=== PATIENT | female | born 1965 | race Caucasian/White ===

== ENCOUNTER → 2023-08-14 16:29 | Outpatient (CLI) | payer MEDICARE, SELFPAY ==
[2023-08-14 16:11] LABS: Alanine Aminotransferase 28 U/L (12-78); Albumin Level 3.5 g/dl (3.5-5.0); Albumin/Globulin Ratio 1.3 (1.1-1.8); Alkaline Phosphatase 70 U/L (38-126); Anion Gap 8.5 mEq/L (5-15); Aspartate Amino Transferase 26 U/L (14-36); Bilirubin,Total 0.3 mg/dl (0.2-1.3); Blood Urea Nitrogen 10 mg/dl (7-17); Calcium 8.8 mg/dl (8.4-10.2); Carbon Dioxide 33 mmol/L (22.0-30.0); Chloride 97 mmol/L (98-107); Chol/HDL Ratio 7.9 (1-3.5); Cholesterol 173 mg/dl (140-200); Estimated Glomerular Filt Rate 103 ml/min (>60); GFR (African American) 124 ML/MIN (>60); Globulin 2.7 g/dL (1.3-3.2); Glucose 139 mg/dl (74-100); HDL Cholesterol 22 mg/dl (40-60); Potassium 3.5 mmoL/L (3.5-5.1); Sodium 135 mmol/L (136-145); Total Protein,Serum 6.2 g/dl (6.3-8.2); Triglycerides 265 mg/dl (30-150); VLDL Cholesterol 53 mg/dL (0-40)
[2023-08-14 16:16] LABS: Basophils # 0.1 K/mm3 (0-0.2); Basophils % 1.1 % (0.1-2.0); Eosinophils # 0.3 K/mm3 (0.0-0.4); Eosinophils % 2.8 % (0.1-12.0); Hematocrit 44.5 % (37.0-47.0); Hemoglobin 15.5 g/dL (12.2-16.2); Mean Corpuscular HGB Conc 34.9 g/dL (31.8-35.4); Mean Corpuscular Hemoglobin 34.4 pg (27.0-31.2); Mean Corpuscular Volume 98.6 fl (81-99); Mean Platelet Volume 10.3 fl (7.4-10.4); Monocytes # 0.5 K/mm3 (0.1-1.0); Monocytes % 4.6 % (1.7-9.3); Neutrophils # 5.2 K/mm3 (1.8-7.8); Neutrophils % 46.6 % (37.0-80.0); Platelet Count 225 K/mm3 (142-424); Red Blood Count 4.52 M/mm3 (4.20-5.40); Red Cell Distribution Width 12.7 % (11.5-17.5); White Blood Count 11.1 K/mm3 (4.8-10.8)
[2023-08-14 16:22] LABS: Direct LDL Cholesterol 113.14 mg/dL (100-129)
[2023-08-14 16:27] LABS: Free T4 (Free Thyroxine) 1.36 ng/dl (0.78-2.19)
[2023-08-14 16:28] LABS: T4 (Thyroxine) 9.3 ug/dl (5.53-11.0); Triiodothryronine (T3) Uptake 37 % (23.5-40.5)
[2023-08-14 16:42] LABS: Thyroid Stimulating Hormone 1.37 uIU/mL (0.465-4.68)
== END ==
LOC: LAB.DROPOF 16:30
PROVIDERS: PCP Nurse Practitioner Family; Visit Provider Nurse Practitioner Family
DX: I10 Essential (primary) hypertension (principal); F41.9 Anxiety disorder, unspecified; Z72.0 Tobacco use; Z79.899 Other long term (current) drug therapy
CPT/HCPCS: 80053; 80061; 84436; 84439; 84443; 84479; 85025

== ENCOUNTER → 2023-08-23 13:19 | Outpatient (CLI) | payer MEDICARE, SELFPAY ==
--- NOTE | 2023-08-23 13:24 | MM_ITS ---
PROCEDURE INFORMATION: Exam: MG Bilateral Screening 3D Mammography Exam date and time: 08/23/2023 1:35 PM Age: 58 years old Clinical indication: Screening mammogram TECHNIQUE: Imaging protocol: Bilateral Screening tomosynthesis and 2D mammography including computer-aided detection (CAD) when performed. COMPARISON: No relevant prior studies available. FINDINGS: MAMMOGRAPHY: Breast composition: There are scattered areas of fibroglandular density. Mass: None. Architectural distortion: No new or suspicious architectural distortion. Calcifications: No new or suspicious calcifications are present Asymmetric density: No new or suspicious asymmetric density is present Skin thickening: None. Axillary adenopathy: None. IMPRESSION: No mammographic evidence of malignancy. Recommend annual screening mammography unless otherwise clinically indicated. ASSESSMENT: BI-RADS category 1: Negative
== END ==
PROVIDERS: PCP Nurse Practitioner Family; Visit Provider Pediatrics
DX: Z12.31 Encounter for screening mammogram for malignant neoplasm of breast (principal)
CPT/HCPCS: 77063; 77067

== ENCOUNTER 2024-08-08 09:09 | Inpatient (IN) | payer MEDICAID, SELFPAY ==
[2024-08-08] VITALS (7 sets, daily range): BP systolic 107–133; BP diastolic 70–77; PULSE 80–110; RESP 18–22; TEMP 37.1–38.2; O2SAT 92–96; BMI 33.6; BMI 34.3
[2024-08-08 09:22] LABS: Microscopic, Urine URINE MICROSCOPIC (MICROSCOPIC)
[2024-08-08 09:29] LABS: Appearance,Urine CLEAR (Clear); Blood, Urine Negative (Negative); Color,Urine YELLOW (Yellow); Glucose,Urine (UA) 3+ (Negative); Ketones,Urine 1+ (Negative); Leukocyte Esterase,Urine TRACE (Negative); Nitrate,Urine Negative (Negative); Protein,Urine TRACE (Negative); Specific Gravity, Urine 1.025 (1.005-1.030)
--- NOTE | 2024-08-08 09:30 | ECG_ITS ---
APPROVED REPORT Exam: Resting ECG HR:103 bpm ECG Measurements Heart Rate [address] 171 P 72 QRSd 110 QRS 23 QT 347 T 75 QTc 407 Conclusion SINUS TACHYCARDIA INCOMPLETE RIGHT BUNDLE BRANCH BLOCK [90+ ms QRS DURATION, TERMINAL R IN V1/V2, 40+ ms S IN I/aVL/V4/V5/V6] NONSPECIFIC T-WAVE ABNORMALITY ABNORMAL RHYTHM ECG Electronically signed by : MURIEL NORWOOD, 08/08/2024 16:28:02
[2024-08-08 09:32] LABS: Bilirubin,Urine Negative (Negative)
--- NOTE | 2024-08-08 09:34 | PC.NURSE ---
Blood sugar is 308.
--- NOTE | 2024-08-08 09:38 | PC.NURSE ---
Dr. Brower at bedside
--- NOTE | 2024-08-08 09:44 | CT_ITS ---
PROCEDURE INFORMATION: Exam: CT Abdomen And Pelvis Without Contrast Exam date and time: 08/08/2024 10:03 AM Age: 59 years old Clinical indication: Nausea and vomiting and other: R gluteal abscess; Additional info: Sepsis, R gluteal abscess/cellulitis, nausea/vom TECHNIQUE: Imaging protocol: Computed tomography of the abdomen and pelvis without contrast. Radiation optimization: All CT scans at this facility use at least one of these dose optimization techniques: automated exposure control; mA and/or kV adjustment per patient size (includes targeted exams where dose is matched to clinical indication); or iterative reconstruction. COMPARISON: No relevant prior studies available. FINDINGS: Lungs: See Heart finding. Heart: Normal heart size. Mild left basilar subsegmental atelectasis. Liver: Moderate hepatic steatosis. No evidence of cirrhosis. No focal lesion. Bile ducts are unremarkable. Gallbladder and biliary ducts: Gallbladder is unremarkable. Pancreas: Normal. No ductal dilation. Spleen: Calcified granulomas in the spleen. Adrenal glands: Normal. No mass. Kidneys and ureters: No renal or ureteral calculi or obstruction bilaterally. Stomach and bowel: No bowel obstruction or acute inflammation. Severe descending and sigmoid colonic diverticulosis. Appendix: Appendix is normal. Intraperitoneal space: Unremarkable. No free air. No significant fluid collection. Vasculature: Unremarkable. No abdominal aortic aneurysm. Lymph nodes: Unremarkable. No enlarged lymph nodes. Urinary bladder: Unremarkable as visualized. Reproductive: Unremarkable as visualized. Bones/joints: Unremarkable. No acute fracture. Soft tissues: There is umet-st-wloapyzm subcutaneous stranding in the left paramedian and posterior aspect of the inferior gluteal tissues. No drainable fluid collection or gas. A tiny hypoattenuating nodular focus measuring 8 x 9 x 7 mm(AP x CC x TV) in the paramedian soft tissues of the left gluteal fold as seen on image 138 series 3 is too small to characterize. Differential includes benign entity such as epidermoid cyst versus a tiny phlegmon. Of note, no significant surrounding inflammatory change. IMPRESSION: 1. No bowel obstruction or acute inflammation. 2. Severe descending and sigmoid colonic diverticulosis. There is lutd-pn-lzzkegci subcutaneous stranding in the left paramedian and posterior aspect of the inferior gluteal tissues, without associated drainable fluid collection or gas. 3. A tiny hypoattenuating nodular focus measuring 8 x 9 x 7 mm(AP x CC x TV) in the paramedian soft tissues of the left gluteal fold as seen on image 138 series 3 is too small to characterize. Differential includes benign entity such as epidermoid or sebaceous cyst versus a tiny phlegmon. Of note, no significant surrounding inflammatory change.
--- NOTE | 2024-08-08 09:44 | CT_ITS ---
PROCEDURE INFORMATION: Exam: CT Head Without Contrast Exam date and time: 08/08/2024 10:00 AM Age: 59 years old Clinical indication: Pain; Headache; Additional info: New headache TECHNIQUE: Imaging protocol: Computed tomography of the head without contrast. Radiation optimization: All CT scans at this facility use at least one of these dose optimization techniques: automated exposure control; mA and/or kV adjustment per patient size (includes targeted exams where dose is matched to clinical indication); or iterative reconstruction. COMPARISON: No relevant prior studies available. FINDINGS: Brain: There is no mass effect, midline shift, acute hemorrhage, extra-axial fluid collection or acute lobar infarct. Cerebral ventricles: No ventriculomegaly. Paranasal sinuses: Mucosal thickening is noted within frontal recesses and ethmoid air cells. Mastoid air cells: Visualized mastoid air cells are well aerated. Bones: Unremarkable. No acute fracture. Soft tissues: Unremarkable. IMPRESSION: No acute intracranial process.
[2024-08-08 09:45] LABS: Lactate Venous 2.2 mmol/L (0.4-2.0); VBG Base Excess 3.8 mmol/L (-2.4-2.3); VBG HCO3 28.8 mmol/L (23-30); VBG Oxygen Saturation 59.5 % (50-70); VBG PCO2 48.6 mmol/L (35-51); VBG PH 7.39 mmol/L (7.31-7.41); VBG PO2 25.1 mmol/L (28-40); VBG Total CO2 30.3 mmol/L (23-27)
--- NOTE | 2024-08-08 09:48 | PC.NURSE ---
Called [facility] per Dr. Brower requesting medical records from yesterday.
[2024-08-08 09:49] LABS: Bacteria,Urine Trace /lpf
--- NOTE | 2024-08-08 09:50 | ED_ITS ---
Discharge Plan Disposition Patient Disposition: Admitted Clinical Impressions Clinical Impression: Cellulitis of buttock, left, Hyperglycemia, Sepsis, Hypokalemia Discharge ED Provider: Nila Brower General Adult HPI General Chief complaint: Hyper/Hypoglycemia Stated complaint: glucose 287, SINGH Time Seen by Provider: 08/08/24 09:34 Mode of Arrival: Ambulatory Source of Information: Patient and Relative Limitations: No Limitations Description of Symptoms (Recalled from ER Triage Doc. by RN): pt was seen last night at [facility] er for cellulitis on left buttock, sugar was running high over the last 3 days, pt has loss of appetite, nausea, headache. pt takes no meds for diabetes and states 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 She states that she first noticed that she had a cyst on her butt that opened up and was draining, however now it feels hard again and she has increased pain in her left buttock, redness, warmth, and swelling. She states that she went to [facility] last night where they noted her blood sugar was high, gave her some insulin, and then sent her home because she told them that she is allergic to IV contrast and would not do a contrasted scan of her butt. She states that once she said that she is allergic to contrast they did not do anything for her. She states they told her she has a borderline sinus infection in addition to the cellulitis they diagnosed her with. They did send her home with antibiotics, which she has not yet started as she was supposed to pick them up today. She notes that she has had higher blood sugar than normal the last several days up in the 200-300 range. She knows she is a borderline diabetic but has never been prescribed medications for diabetes in the past. She does note that she is having a headache and sinus pressure, but she denies any visual changes, numbness, tingling, weakness, or other concerns. She has not been taking her home medications secondary to her nausea and inability to tolerate oral intake. I requested records from [facility] and independently reviewed these. It looks like her urinalysis at that time was concerning for urinary tract infection, she was found to have the cellulitis of her left buttock but they did not appreciate abscess at that time, and no imaging was performed. She was given IV Rocephin patient was found to have a normal lactic acid and procalcitonin there. She did have a leukocytosis of 20 and was hemoconcentrated as well with a hemoglobin of 17.8. Chemistry showed very mild hyponatremia, hypokalemia, and hypochloremia with a glucose of 332 but otherwise reassuring. She was given 10 units of insulin. Related Data Home Medications ?Medication ?Instructions ?Recorded ?Confirmed fluticasone propionate 50 2 spray intranasal DAILY 08/13/23 08/08/24 mcg/actuation nasal spray,suspension cephalexin 500 mg capsule 500 mg PO BID 08/08/24 08/08/24 meloxicam 15 mg tablet 15 mg PO DAILY 08/08/24 08/08/24 rosuvastatin 10 mg tablet 30 mg PO DAILY 08/08/24 08/08/24 Allergies Allergy/AdvReac Type Severity Reaction Status Date / Time Penicillins Allergy Severe Swelling Verified 04/06/24 15:20 of Lip/Tongue/Throat Sulfa (Sulfonamide Allergy Severe shortness Verified 04/06/24 15:20 Antibiotics) of breath ketorolac [From Toradol] Allergy Mild Other Verified 08/08/24 09:59 codeine Allergy shortness Verified 04/06/24 15:20 of breath iodine Allergy Other Verified 08/08/24 09:59 metformin Allergy heart Verified 04/06/24 15:20 issues Tetracyclines Allergy Weakness Verified 04/06/24 15:20 [facility] Disclaimer: The information contained in this section may have been updated after the patient was seen, as this information can be updated by other users. 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 Other Medical History Have you received the Pneumonia Vaccine: No ROS Obtained: Yes All systems reviewed & no additional complaints except as documented Physical Exam General General appearance: alert and in no apparent distress Head Head exam: atraumatic and normocephalic Eye Eye exam: Present normal appearance, PERRL and EOMI ENT ENT exam: Present normal exam, normal oropharynx, mucous membranes moist and normal external ear exam Neck Neck exam: Present normal inspection, full ROM and trachea midline; Absent tenderness Chest Chest inspection: Present normal inspection and symmetric chest wall rise; Absent tenderness Respiratory Respiratory exam: Present normal lung sounds bilaterally; Absent respiratory distress, wheezes, stridor or accessory muscle use Cardiovascular Cardiovascular exam: Present normal rhythm and tachycardia Abdominal Exam Abdominal exam: Present soft; Absent distention, tenderness or guarding Extremities Exam Extremities exam: Present normal inspection, full ROM and normal capillary refill; Absent tenderness or edema Back Exam Back exam: Present full ROM and tenderness Back 1 view image: 2 1. erythema, warmth, TTP with mild induration. No appreciable superficial abscesses or fluctuance. no palpable crepitus Neurological Exam Neurological exam: Present alert, oriented X3, CN II-XII intact and normal gait; Absent motor sensory deficit Psychiatric Psychiatric exam: Present normal affect and normal mood Skin Skin exam: Present warm, dry and erythema Medical Decision Making Medical Records Medical records reviewed: Yes I reviewed the patient's medical records. Screening: Per USPSTF and CDC recommendations, given the prevalence of disease in our region, it is our hospital?s policy to screen for HIV and viral Hepatitis for all patients aged 18 and over and those with ongoing risk factors. Kumar Inquiry Pt receiving controlled substance: No Vital Signs: 08/08/24 09:10 08/08/24 11:00 08/08/24 11:31 Temperature 100.7 F H Temperature Source Oral Pulse Rate 95 H 92 H Pulse Rate [Right Radial] 103 H Respiratory Rate 20 18 18 Blood Pressure 112/74 129/72 Blood Pressure [Right Arm] 117/77 Blood Pressure Mean 86 77 Blood Pressure Mean [Right Arm] 90 Blood Pressure Source 02 Sat by Pulse Oximetry 94 L 95 96 Oxygen Delivery Method Room Air 08/08/24 12:00 08/08/24 12:14 Temperature 98.7 F Temperature Source Oral Pulse Rate 84 85 Pulse Rate [Right Radial] Respiratory Rate 18 19 Blood Pressure 107/74 L 107/74 L Blood Pressure [Right Arm] Blood Pressure Mean 82 Blood Pressure Mean [Right Arm] Blood Pressure Source Automatic Cuff 02 Sat by Pulse Oximetry 95 Oxygen Delivery Method Room Air Lab Data Lab results reviewed: Yes I reviewed the patient's lab results. Lab Results 08/08/24 09:13: Urine Color Yellow, Urine Appearance Clear, Urine pH 6.0, Ur Specific [place] 1.025, Urine Protein Trace, Urine Glucose (UA) 3+, Urine Ketones 1+, Urine Blood Negative, Urine Nitrate Negative, Urine Bilirubin Negative, Urine Urobilinogen 4.0, Ur Leukocyte Esterase Trace, Urine RBC None, Urine WBC 10-20, Ur Squamous Epith Cells 5-10, Urine Bacteria Trace 08/08/24 09:35: VBG pH 7.39, VBG pCO2 48.6, VBG pO2 25.1 L, VBG HCO3 28.8, VBG Total CO2 30.3 H, VBG O2 Saturation 59.5, VBG Base Excess 3.8 H, VBG Lactic Acid 2.2 H 08/08/24 09:45: WBC 18.7 H, RBC 5.06, Hgb 17.5 H, Hct 50.6 H, MCV 100.0 H, MCH 34.5 H, MCHC 34.5, RDW 13.1, Plt Count 178, MPV 8.5, Neut % (Auto) 83.6 H, Lymph % (Auto) 9.8 L, Pope % (Auto) 5.6, Eos % (Auto) 0.3, Baso % (Auto) 0.6, Neut # (Auto) 15.6 H, Lymph # (Auto) 1.8, Pope # (Auto) 1.1 H, Eos # (Auto) 0.1, Baso # (Auto) 0.1, Total Counted 100, Neutrophils % (Manual) 86 H, Lymphocytes % (Manual) 11, Monocytes % (Manual) 3, Platelet Estimate Normal, Macrocytosis 1+, Sodium 130 L, Potassium 3.1 L, Chloride 94 L, Carbon Dioxide 32 H, Anion Gap 7.1, BUN 11, Creatinine 0.60, Estimated Creat Clear 133, Estimated GFR 102, Est GFR ( Amer) 124, Glucose 250 H, Hemoglobin A1c 11.4 H, Calcium 9.1, P hosphorus 2.4 L, Magnesium 1.7, Total Bilirubin 0.9, AST 22, ALT 25, Alkaline Phosphatase 102, Total Protein 7.0, Albumin 3.7, Globulin 3.3 H, Albumin/Globulin Ratio 1.1, Procalcitonin 0.284, Acetone Level None detected, HIV 1&2 Antibody Rapid Nonreactive 08/08/24 09:45 08/08/24 09:45 Orders (Tests/Meds): ED MEDICATIONS Generic Name Dose Route Start Last Admin Trade Name Freq PRN Reason Stop Dose Admin Acetaminophen 650 mg 08/08/24 12:00 Acetaminophen 325mg Tab PO 09/07/24 11:59 Q4HP PRN Fever or Mild Pain (1-3) Enoxaparin Sodium 40 mg 08/09/24 09:00 Enoxaparin 40mg/0.4ml Syringe SQ 09/08/24 08:59 DAILY PETAR Lactated Ringer's 1,000 mls @ 50 mls/hr 08/08/24 12:00 Lactated Ringer's 1000 Ml Bag IV 09/07/24 11:59 .Q20H PETAR Cefepime HCl 1 gm/ Sodium 50 mls @ 100 mls/hr 08/08/24 21:00 Chloride IV 08/18/24 20:59 Q12H PETAR Vancomycin HCl 1,250 mg/ 250 mls @ 125 mls/hr 08/08/24 13:15 Sodium Chloride IV 08/18/24 13:14 Q12 PETAR Ondansetron HCl 4 mg 08/08/24 12:00 Ondansetron 4mg/2ml Vial IV 09/07/24 11:59 Q8HP PRN Nausea Discontinued Medications Generic Name Dose Route Start Last Admin Trade Name Freq PRN Reason Stop Dose Admin Acetaminophen 1,000 mg 08/08/24 09:44 08/08/24 09:51 Acetaminophen 1,000mg/100ml Vial IV 08/08/24 09:45 1,000 mg ONCE ONE Administration Lactated Ringer's 1,500 mls @ 750 mls/hr 08/08/24 09:44 08/08/24 09:52 Lactated Ringer's 1000 Ml Bag 30 ml/kg infuse over 2 hr (1500 ml) 08/08/24 11:43 750 mls/hr IV Administration .Q2H ONE Potassium Chloride/Water 100 mls @ 100 mls/hr 08/08/24 10:22 08/08/24 11:51 Potassium Chloride 10meq/100ml Ivpb IV 08/08/24 12:21 100 mls/hr Q1H PETAR Administration Ceftriaxone Sodium 2 gm/ 100 mls @ 200 mls/hr 08/08/24 10:23 08/08/24 10:36 Sodium Chloride IV 08/08/24 10:52 200 mls/hr ONCE ONE Administration Ketorolac Tromethamine 15 mg 08/08/24 09:44 08/08/24 10:00 Ketorolac 30mg/Ml Vial IV 08/08/24 09:45 Not Given ONCE ONE Miscellaneous 1 each 08/08/24 10:30 08/08/24 10:39 Vancomycin Consult Request NOTAPPLIC 09/07/24 10:29 1 each CONSULT [facility] Administration Miscellaneous 1 each 08/08/24 12:15 08/08/24 15:05 Vancomycin Consult Request NOTAPPLIC 09/07/24 12:14 Not Given CONSULT [facility] Ondansetron HCl 4 mg 08/08/24 09:44 08/08/24 09:52 Ondansetron 4mg/2ml Vial IV 08/08/24 09:45 4 mg ONCE ONE Administration ORDERS Category Date Time Status CT abdomen pelvis wo con Stat Cat Scan 08/08/24 09:[address] head/brain wo con Stat Cat Scan 08/08/24 09:44 Completed Acetone, Serum (Rapid) Stat Lab 08/08/24 09:45 Completed Basic Metabolic Panel [facility] Lab 08/09/24 06:00 Ordered Basic Metabolic Panel AMLAB Lab 08/10/24 06:00 Ordered Basic Metabolic Panel AMLAB Lab 08/11/24 06:00 Ordered Basic Metabolic Panel AMLAB Lab 08/12/24 06:00 Ordered Basic Metabolic Panel AMLAB Lab 08/13/24 06:00 Ordered CMP [Comprehensive Metabolic Panel] Stat Lab 08/08/24 09:45 Completed Complete Blood Count Auto Diff AMLAB Lab 08/09/24 06:00 Ordered Complete Blood Count Auto Diff AMLAB Lab 08/10/24 06:00 Ordered Complete Blood Count Auto Diff AMLAB Lab 08/11/24 06:00 Ordered Complete Blood Count Auto Diff AMLAB Lab 08/12/24 06:00 Ordered Complete Blood Count Auto Diff [facility]AB Lab 08/13/24 06:00 Ordered Complete Blood Count Auto Diff Stat Lab 08/08/24 09:45 Completed HIV (1&2) Antibody Rapid Stat Lab 08/08/24 09:45 Completed Hemoglobin A1C Stat Lab 08/08/24 09:45 Completed Hep C Ab with Reflex to RNA Stat Lab 08/08/24 09:45 Received Lactic Acid [facility] Lab 08/09/24 06:00 Ordered Magnesium AMLAB Lab 08/09/24 06:00 Ordered Magnesium Stat Lab 08/08/24 09:45 Completed Phosphorous [facility]AB Lab 08/09/24 06:00 Ordered Phosphorous Stat Lab 08/08/24 09:45 Completed Procalcitonin Stat Lab 08/08/24 09:45 Completed Urinalysis and Microscopic Stat Lab 08/08/24 09:13 Completed Blood Culture Stat Micro 08/08/24 09:53 Received Urine Culture Stat Micro 08/08/24 09:13 Received VBG [Venous Blood Gas] Stat RT 08/08/24 09:35 Completed ECG Data Tracing #1: I reviewed this ECG and interpreted as documented below: Sinus tachycardia with a ventricular rate of [address] changes concerning for ischemia. Incomplete right bundle branch block noted. ECG initial impression date: 08/08/24 ECG initial impression time: 09:34 Medical Decision Narrative: In summary, this patient is a 59-year-old female presenting to the Emergency Department for evaluation of fevers, headache, nausea, inability to tolerate oral intake, high blood sugar readings at home, and redness, warmth, and swelling to her left buttock. Differential diagnoses considered include but are not limited to cellulitis, abscess, necrotizing soft tissue infection, sepsis, hyperglycemia, HHS, DKA. Ruling out the most morbid conditions drove assessment. It should be noted patient's history includes hypertension, hyperlipidemia, and prediabetes which likely are not at goal therapy. This complicates all aspects of care by increasing patient's risk for morbidity. I reviewed patient's past medical records and noted previous [facility] evaluation last night detailed in HPI as well as previous PCP evaluations back in March and April. On exam, the patient is lying in bed in no acute distress. She is mildly tachycardic with heart rate in the high 90s to low 100s, but she is normotensive. She has findings concerning for cellulitis of the left buttock but no obvious palpable crepitus or fluctuance. workup included broad lab evaluation to evaluate for infectious and metabolic etiologies of her symptoms as well as CT head without contrast, CT abdomen and pelvis without contrast, and EKG. EKG is reassuring without ischemic change. CT scans ordered without contrast, though I did explain to the patient that with contrast would definitely show area of infection and much greater detail and things can be missed on CTs without contrast. She refuses pretreatment and also refuses IV contrast under any circumstance. She was given a sepsis bolus of IV fluids as well as IV acetaminophen and Zofran. IV Toradol was ordered, however she stated she is allergic to it because the last time she had it she could not talk for 24 hours. I independently interpreted CT scan prior to the radiologist read and noted cellulitis of the left buttock but no obvious subcutaneous air or abscess. Please see their read for final interpretation. Labs were obtained that demonstrated leukocytosis and elevated lactic acid. Given this, the fever, and tachycardia, this is concerning for sepsis. Urine is also concerning for possible infection. Patient was also found to have hypokalemia, for which IV replacement was ordered.. Patient was given a full sepsis bolus of IV fluids as well as IV vancomycin and Rocephin with concern for sepsis secondary to cellulitis. Ultimately, I feel that she would benefit from admission for continued monitoring. I had an interactive discussion with the hospitalist who admitted the patient in stable condition for further evaluation and management. Patient required close monitoring while in the ED given sepsis as well as her significant hypokalemia Critical Care Critical Care Time Critical Care Time: Yes Attestation: On 08/08/24, the high probability of a clinically significant, sudden or life threatening deterioration of the following system(s) required my full and direct attention, intervention and personal management. The time I documented below is in addition to time spent performing reported procedures but includes the following listed in this critical care notation. Total Time Total Critical Care Time: 30
[2024-08-08] MEDS: ACETAMINOPHEN 1,000MG/100ML VIAL 1000 MG IV (09:51)
[2024-08-08] MEDS: LACTATED RINGERS 1000ML 1,500 ML 750 ML IV (09:52)
[2024-08-08] MEDS: ONDANSETRON 4MG/2ML VIAL 4 MG IV (09:52)
--- NOTE | 2024-08-08 09:56 | PC.NURSE ---
Patient gone to CT.
[2024-08-08 10:01] LABS: Basophils # 0.1 K/mm3 (0-0.2); Basophils % 0.6 % (0.1-2.0); Eosinophils # 0.1 K/mm3 (0.0-0.4); Eosinophils % 0.3 % (0.1-12.0); Hematocrit 50.6 % (37.0-47.0); Hemoglobin 17.5 g/dL (12.2-16.2); Lymphocytes # 1.8 K/mm3 (0.7-4.5); Lymphocytes % 9.8 % (10-50); Mean Corpuscular HGB Conc 34.5 g/dL (31.8-35.4); Mean Corpuscular Hemoglobin 34.5 pg (27.0-31.2); Mean Platelet Volume 8.5 fl (7.4-10.4); Monocytes # 1.1 K/mm3 (0.1-1.0); Monocytes % 5.6 % (1.7-9.3); Neutrophils # 15.6 K/mm3 (1.8-7.8); Neutrophils % 83.6 % (37.0-80.0); Platelet Count 178 K/mm3 (142-424); Red Blood Count 5.06 M/mm3 (4.20-5.40); Red Cell Distribution Width 13.1 % (11.5-17.5); White Blood Count 18.7 K/mm3 (4.8-10.8)
[2024-08-08 10:03] LABS: MANUAL DIFFERENTIAL MANUAL DIFFERENTIAL (MANUAL DIFF)
[2024-08-08 10:17] LABS: Acetone, Serum (Rapid) None Detected (None Detect)
[2024-08-08 10:19] LABS: Alanine Aminotransferase 25 U/L (12-78); Albumin Level 3.7 g/dl (3.5-5.0); Albumin/Globulin Ratio 1.1 (1.1-1.8); Alkaline Phosphatase 102 U/L (38-126); Anion Gap 7.1 mEq/L (5-15); Aspartate Amino Transferase 22 U/L (14-36); Bilirubin,Total 0.9 mg/dl (0.2-1.3); Blood Urea Nitrogen 11 mg/dl (7-17); Calcium 9.1 mg/dl (8.4-10.2); Carbon Dioxide 32 mmol/L (22.0-30.0); Chloride 94 mmol/L (98-107); Creatinine Clearance Estimated 133 mL/min (50-200); Estimated Glomerular Filt Rate 102 ml/min (>60); GFR (African American) 124 ML/MIN (>60); Globulin 3.3 g/dL (1.3-3.2); Glucose 250 mg/dl (74-100); Potassium 3.1 mmoL/L (3.5-5.1); Sodium 130 mmol/L (136-145)
[2024-08-08 10:36] LABS: Procalcitonin 0.284 ng/mL (0.0-2.0)
[2024-08-08] MEDS: KCl 10mEq/100ml 100 ML 100 MEQ IV ×2 (10:36→11:51)
[2024-08-08] MEDS: CEFTRIAXONE SODIUM 2 GM in 0.9 % SODIUM CHLORIDE 100 ML IV (10:36)
[2024-08-08] MEDS: VANCOMYCIN CONSULT REQUEST 1 EACH NOTAPPLIC (10:39)
[2024-08-08 11:03] LABS: Phosphorous 2.4 mg/dl (2.5-4.5)
[2024-08-08 11:04] LABS: Magnesium 1.7 mg/dl (1.6-2.3)
--- NOTE | 2024-08-08 11:15 | PC.NURSE ---
Dr. Brower at bedside discussing results and POC.
--- NOTE | 2024-08-08 11:25 | PC.NURSE ---
Dr. Brower called the hospitalist for admission, no answer. Called [facility]ary for a lunch tray.
[2024-08-08 11:31] LABS: Hemoglobin A1C 11.4 % (4.0-6.0)
[2024-08-08 11:37] LABS: Lymphocytes % 11 % (10-50); Macrocytosis 1+; Monocytes % 3 % (2-9); Neutrophils % 86 % (42-76); Platelet Estimate Normal; Total Cells Counted 100
--- NOTE | 2024-08-08 12:01 | PC.NURSE ---
Dr. Rose has agreed with adx. Notified supervisor sunglasses of admission and placed bed request order
--- NOTE | 2024-08-08 12:15 | PC.NURSE ---
report called to Mahsa
--- NOTE | 2024-08-08 13:07 | P.CONPHA_ITS ---
Pharmacy Consult Date: 08/08/24 Time: 13:07 Referring provider: DR. OSBORNE Reason for Consult:: VANCOMYCIN DOSING Allergies Allergy/AdvReac Type Severity Reaction Status Date / Time Penicillins Allergy Severe Swelling Verified 04/06/24 15:20 of Lip/Tongue/Throat Sulfa (Sulfonamide Allergy Severe shortness Verified 04/06/24 15:20 Antibiotics) of breath ketorolac [From Toradol] Allergy Mild Other Verified 08/08/24 09:59 codeine Allergy shortness Verified 04/06/24 15:20 of breath iodine Allergy Other Verified 08/08/24 09:59 metformin Allergy heart Verified 04/06/24 15:20 issues Tetracyclines Allergy Weakness Verified 04/06/24 15:20 Home Medications ?Medication ?Instructions ?Recorded ?Confirmed ?Type fluticasone propionate 50 2 spray intranasal DAILY 08/13/23 08/08/24 History mcg/actuation nasal spray,suspension cephalexin 500 mg capsule 500 mg PO BID 08/08/24 08/08/24 History meloxicam 15 mg tablet 15 mg PO DAILY 08/08/24 08/08/24 History rosuvastatin 10 mg tablet 30 mg PO DAILY 08/08/24 08/08/24 History New Prescriptions to Start Prescriptions: Height: 1.57 m Weight: 83.461 kg Laboratory Results:: Laboratory Results - last 24 hr 08/08/24 09:13: Urine Color Yellow, Urine Appearance Clear, Urine pH 6.0, Ur Specific [place] 1.025, Urine Protein Trace, Urine Glucose (UA) 3+, Urine Ketones 1+, Urine Blood Negative, Urine Nitrate Negative, Urine Bilirubin Negative, Urine Urobilinogen 4.0, Ur Leukocyte Esterase Trace, Urine RBC None, Urine WBC 10-20, Ur Squamous Epith Cells 5-10, Urine Bacteria Trace 08/08/24 09:35: VBG pH 7.39, VBG pCO2 48.6, VBG pO2 25.1 L, VBG HCO3 28.8, VBG Total CO2 30.3 H, VBG O2 Saturation 59.5, VBG Base Excess 3.8 H, VBG Lactic Acid 2.2 H 08/08/24 09:45: WBC 18.7 H, RBC 5.06, Hgb 17.5 H, Hct 50.6 H, MCV 100.0 H, MCH 34.5 H, MCHC 34.5, RDW 13.1, Plt Count 178, MPV 8.5, Neut % (Auto) 83.6 H, Lymph % (Auto) 9.8 L, [place] % (Auto) 5.6, Eos % (Auto) 0.3, Baso % (Auto) 0.6, Neut # (Auto) 15.6 H, Lymph # (Auto) 1.8, [place] # (Auto) 1.1 H, Eos # (Auto) 0.1, Baso # (Auto) 0.1, Total Counted 100, Neutrophils % (Manual) 86 H, Lymphocytes % (Manual) 11, Monocytes % (Manual) 3, Platelet Estimate Normal, Macrocytosis 1+, Sodium 130 L, Potassium 3.1 L, Chloride 94 L, Carbon Dioxide 32 H, Anion Gap 7.1, BUN 11, Creatinine 0.60, Estimated Creat Clear 133, Estimated GFR 102, Est GFR ( Amer) 124, Glucose 250 H, Hemoglobin A1c 11.4 H, Calcium 9.1, Phosphorus 2.4 L, Magnesium 1.7, Total Bilirubin 0.9, AST 22, ALT 25, Alkaline Phosphatase 102, Total Protein 7.0, Albumin 3.7, Globulin 3.3 H, Albumin/Globulin Ratio 1.1, Procalcitonin 0.284, Acetone Level None detected Medical History: Medical History (Updated 08/08/24 @ 10:29 by Nila Brower DO) Mild acid reflux Bladder incontinence Hypertension Seasonal allergies Chronic back pain Scoliosis Cervical spondylosis Assessment and Plan Assessment and plan all Dx Assessment and Plan for all problems:: Pharmacokinetic dosing service Objective: Patient: Floor: Age: 59 yo Serum creatinine: 0.6 mg/dL Height: 62.0 Inches Weight (kg): 83.5 Assessment: IBW (kg): 50.10 Dosing wt(kg): 83.5 Estimated Creatinine clearance (ml/min): 79.8 CRCL method: Cockcroft and Gault using ibw(default). Drug selected: Vancomycin Loading dose (mg): 0 Vd (liters): 66.8 (factor used: 0.8 L/kg) Jonnie (hr-1): 0.071 Half life (hrs): 9.76 Recommended dose: 1250 mg Interval: 12 hrs Infusion time (hrs): 2.0 Predicted peak (mcg/mL): 30.4 Predicted trough (mcg/mL): 14.95 Total body weight is being used for vancomycin dosing. Recommendations: Give Vancomycin 1250 mg q 12 hrs with an expected Cpeak of 30.4 mcg/ml and an expected Ctrough of 14.95 mcg/ml ----Vanco only - ignore for aminoglycosides----- CLvanco= 4.74 L/hr AUC 0-24 /LAUREEN Data: LAUREEN 0.5 mcg/mL: AUC/LAUREEN: 1054.9 LAUREEN 1.0 mcg/mL: AUC/LAUREEN: 527.4 --------- LAUREEN 1.5 mcg/mL: AUC/LAUREEN: 351.6 LAUREEN 2.0 mcg/mL: AUC/LAUREEN: 263.7
[2024-08-08 13:40] LABS: HIV (1&2) Antibody Rapid NONREACTIVE (NONREACTIVE)
[2024-08-08 13:46] LABS: Reflex Lactic Add Lactic Reflex
[2024-08-08 14:24] LABS: Lactic Acid Follow Up (RFLX 1) 1.2 mmol/L (0.7-2.1)
--- NOTE | 2024-08-08 16:20 | EXP.HP ---
History of Present Illness *Admission Date: 08/08/24 *Reason for visit:: Cellulitis, pus drainage, fevers *History of present illness: Talisha Kemp is a 59-year-old female with a medical history significant for multiple skin infections that she has self lanced, diabetes, current smoker who presents to the ED for worsening left buttock cellulitis. She initially presented to [facility] who prescribed her Keflex. She has not been able to pick it up today as she was feeling more ill with decreased appetite and fevers. She states the skin infection has been going on for about 4 days, and she has had similar skin infections in the past that she has self lanced where there was drainage. Of note, she states she has never been diagnosed with diabetes, but she always has polyuria and polydipsia. Workup in the ED significant for WBC 18.7, sodium 130, glucose 250, and UA positive for 3+ glucose, trace bacteria and leukocyte esterase. CT abdomen/pelvis suggestive of tiny phlegmon in the left gluteal fold, as well as severe descending and sigmoid no colonic diverticulosis. Case was discussed with ED attending and decision was made to admit patient for sepsis secondary to cellulitis with possible phlegmon/abscess. [facility] Disclaimer: The information contained in this section may have been updated after the patient was seen, as this information can be updated by other users. 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 Other Medical History Have you received the Flu Vaccine for this season: No Have you received the Pneumonia Vaccine: No Meds Home Medications and Allergies Home Medications ?Medication ?Instructions ?Recorded ?Confirmed ?Type cephalexin 500 mg capsule 500 mg PO BID 08/08/24 08/08/24 History meloxicam 15 mg tablet 15 mg PO DAILY 08/08/24 08/08/24 History rosuvastatin 10 mg tablet 30 mg PO HS 08/08/24 08/09/24 History New Prescriptions to Start Prescriptions: Allergies Allergy/AdvReac Type Severity Reaction Status Date / Time Penicillins Allergy Severe Swelling Verified 04/06/24 15:20 of Lip/Tongue/Throat Sulfa (Sulfonamide Allergy Severe shortness Verified 04/06/24 15:20 Antibiotics) of breath ketorolac [From Toradol] Allergy Mild Other Verified 08/08/24 09:59 codeine Allergy shortness Verified 04/06/24 15:20 of breath iodine Allergy Other Verified 08/08/24 09:59 metformin Allergy heart Verified 04/06/24 15:20 issues Tetracyclines Allergy Weakness Verified 04/06/24 15:20 Exam Data for Last 24 hours Vital signs and Labs for Last 24 Hours: Temp Pulse Resp BP Pulse Ox O2 Del Method 98.7 F 85 19 107/74 L 95 Room Air 08/08/24 12:14 08/08/24 12:14 08/08/24 12:14 08/08/24 12:14 08/08/24 12:00 08/08/24 12:14 Laboratory Results - last 24 hr 08/08/24 09:13: Urine Color Yellow, Urine Appearance Clear, Urine pH 6.0, Ur Specific [place] 1.025, Urine Protein Trace, Urine Glucose (UA) 3+, Urine Ketones 1+, Urine Blood Negative, Urine Nitrate Negative, Urine Bilirubin Negative, Urine Urobilinogen 4.0, Ur Leukocyte Esterase Trace, Urine RBC None, Urine WBC 10-20, Ur Squamous Epith Cells 5-10, Urine Bacteria Trace 08/08/24 09:35: VBG pH 7.39, VBG pCO2 48.6, VBG pO2 25.1 L, VBG HCO3 28.8, VBG Total CO2 30.3 H, VBG O2 Saturation 59.5, VBG Base Excess 3.8 H, VBG Lactic Acid 2.2 H 08/08/24 09:45: WBC 18.7 H, RBC 5.06, Hgb 17.5 H, Hct 50.6 H, MCV 100.0 H, MCH 34.5 H, MCHC 34.5, RDW 13.1, Plt Count 178, MPV 8.5, Neut % (Auto) 83.6 H, Lymph % (Auto) 9.8 L, [place] % (Auto) 5.6, Eos % (Auto) 0.3, Baso % (Auto) 0.6, Neut # (Auto) 15.6 H, Lymph # (Auto) 1.8, [place] # (Auto) 1.1 H, Eos # (Auto) 0.1, Baso # (Auto) 0.1, Total Counted 100, Neutrophils % (Manual) 86 H, Lymphocytes % (Manual) 11, Monocytes % (Manual) 3, Platelet Estimate Normal, Macrocytosis 1+, Sodium 130 L, Potassium 3.1 L, Chloride 94 L, Carbon Dioxide 32 H, Anion Gap 7.1, BUN 11, Creatinine 0.60, Estimated Creat Clear 133, Estimated GFR 102, Est GFR ( Amer) 124, Glucose 250 H, Hemoglobin A1c 11.4 H, Calcium 9.1, Phosphorus 2.4 L, Magnesium 1.7, Total Bilirubin 0.9, AST 22, ALT 25, Alkaline Phosphatase 102, Total Protein 7.0, Albumin 3.7, Globulin 3.3 H, Albumin/Globulin Ratio 1.1, Procalcitonin 0.284, Acetone Level None detected, HIV 1&2 Antibody Rapid Nonreactive 08/08/24 14:00: Lactate 1.2 I & O for Last 24 hours: Intake & Output 08/05/24 08/06/24 08/07/24 08/08/24 23:59 23:59 23:59 23:59 Weight 83.461 kg Constitutional Constitutional: no acute distress *Routine HEENT Exam Head: Present normocephalic Eye: Present EOMI and PERRL ENT: Present mucous membranes moist *Routine Neck Exam Neck: Present supple; Absent lymphadenopathy *Routine Respiratory Exam Respiratory: Present CTA bilaterally *Routine Cardiovascular Exam Cardiovascular: Present RRR *Routine Abdominal Exam Abdominal: Present soft and normoactive bowel sounds; Absent tenderness *Routine Rectal Exam Rectal:: deferred *Routine Genitalia Exam Genitalia:: deferred *Routine Extremities Exam Extremities: Absent cyanosis, clubbing or edema *Routine Skin Exam Skin: Present erythema and warm; Absent rash *Routine Neurological Exam Neurological: Present alert and oriented X3 Assessment and Plan *Assessment and plan (1) Sepsis: Status: Acute Category: Medical Code(s): A41.9 - Sepsis, unspecified organism (2) Cellulitis of buttock, left: Status: Acute Category: Medical Code(s): L03.317 - Cellulitis of buttock (3) Diabetes: Status: Acute Category: Medical Code(s): E11.9 - Type 2 diabetes mellitus without complications Plan Talisha Kemp is a 59-year-old female with a medical history significant for multiple skin infections that she has self lanced, diabetes, current smoker who presents to the ED for worsening left buttock cellulitis. She initially presented to [facility] who prescribed her Keflex. She has not been able to pick it up today as she was feeling more ill with decreased appetite and fevers. She states the skin infection has been going on for about 4 days, and she has had similar skin infections in the past that she has self lanced where there was drainage. Of note, she states she has never been diagnosed with diabetes, but she always has polyuria and polydipsia. Workup in the ED significant for WBC 18.7, sodium 130, glucose 250, and UA positive for 3+ glucose, trace bacteria and leukocyte esterase. CT abdomen/pelvis suggestive of tiny phlegmon in the left gluteal fold, as well as severe descending and sigmoid no colonic diverticulosis. Case was discussed with ED attending and decision was made to admit patient for sepsis secondary to cellulitis with possible phlegmon/abscess. #Sepsis #Cellulitis of left buttock #Possible abscess ? WBC 18.7, temperature up to 100.7, with tachycardia on presentation. ? Sepsis 1.5 L bolus given in the ED. ? IV LR at 50 mL/h until tomorrow. Patient is tolerating p.o. intake. ? IV vancomycin, cefepime for empiric coverage. ? Follow-up blood cultures. ? Follow-up wound cultures. ? General Surgery consulted to evaluate for draining abscess, pending recommendations. ? Patient's uncontrolled diabetes is likely contributing to recurrent skin infections. #Diabetes ? Patient states she has a longstanding history of polyuria and polydipsia. ? Blood glucose initially 250. UA shows 3+ glucose. ? Hemoglobin A1c 08/08/2024 is 11.4. ? LDSSI, ACHS glucose checks. ? Started Lantus 10 units nightly. ? Will likely need to be discharged on insulin, as well as metformin on discharge. Full code Lovenox 40 mg
[2024-08-08] MEDS: LACTATED RINGERS 1000ML 1,000 ML 50 ML IV (16:53)
[2024-08-08] MEDS: VANCOMYCIN HCL 1,250 MG in 0.9 % SODIUM CHLORIDE 250 ML 125 MG IV (16:55)
--- NOTE | 2024-08-08 18:30 | PC.NURSE ---
patient takes loratidine and hydrochlorothiazide, does not know the dosage
[2024-08-08] MEDS: CEFEPIME HCL 1 GM in 0.9 % SODIUM CHLORIDE 50 ML IV (21:22)
[2024-08-08] MEDS: humaLOG 100 UNITS/ML 10ML VIAL (SSI) SQ (21:25)
[2024-08-08] MEDS: INSULIN GLARGINE 100 UNITS/ML 10ML VIAL 10 UNIT SQ (21:26)
[2024-08-08 21:42] LABS: POC Glucose,Bedside 297 (70-110)
[2024-08-08 21:42] LABS: POC Glucose,Bedside 290 (70-110)
[2024-08-08 22:35] LABS: Chloride 99 mmol/L (98-107); Potassium 3.1 mmoL/L (3.5-5.1); Sodium 130 mmol/L (136-145)
[2024-08-08 22:38] LABS: Anion Gap 6.1 mEq/L (5-15); Blood Urea Nitrogen 7 mg/dl (7-17); Carbon Dioxide 28 mmol/L (22.0-30.0); Creatinine Clearance Estimated 160 mL/min (50-200); Estimated Glomerular Filt Rate 126 ml/min (>60); GFR (African American) 153 ML/MIN (>60)
[2024-08-08 22:39] LABS: Calcium 8.6 mg/dl (8.4-10.2); Glucose 267 mg/dl (74-100)
[2024-08-08] MEDS: POTASSIUM CHLORIDE 20MEQ TAB 40 MEQ PO (23:47)
[2024-08-08] MEDS: MAGNESIUM SULFATE IN WATER 2 GM/50 ML PIGGYBACK IV (23:47)
[2024-08-09] VITALS (21 sets, daily range): BP systolic 100–148; BP diastolic 51–92; PULSE 70–100; RESP 16–20; TEMP 36.6–37.7; O2SAT 92–98; BMI 35.8
[2024-08-09] MEDS: MAGNESIUM SULFATE IN WATER 2 GM/50 ML PIGGYBACK IV (01:11)
[2024-08-09] MEDS: POTASSIUM CHLORIDE 20MEQ TAB 40 MEQ PO (04:48)
[2024-08-09 04:58] LABS: POC Glucose,Bedside 246 (70-110)
[2024-08-09] MEDS: VANCOMYCIN HCL 1,250 MG in 0.9 % SODIUM CHLORIDE 250 ML 125 MG IV ×2 (05:11→16:38)
[2024-08-09] MEDS: humaLOG 100 UNITS/ML 10ML VIAL (SSI) SQ ×4 (05:12→20:49)
[2024-08-09 06:04] LABS: Lactic Acid 0.9 mmol/L (0.7-2.1)
[2024-08-09 06:05] LABS: Anion Gap 4.7 mEq/L (5-15); Blood Urea Nitrogen 8 mg/dl (7-17); Calcium 8.5 mg/dl (8.4-10.2); Carbon Dioxide 28 mmol/L (22.0-30.0); Chloride 101 mmol/L (98-107); Creatinine Clearance Estimated 169 mL/min (50-200); Estimated Glomerular Filt Rate 126 ml/min (>60); GFR (African American) 153 ML/MIN (>60); Glucose 218 mg/dl (74-100); Magnesium 2.2 mg/dl (1.6-2.3); Phosphorous 2.6 mg/dl (2.5-4.5); Potassium 3.7 mmoL/L (3.5-5.1); Sodium 130 mmol/L (136-145)
[2024-08-09 06:53] LABS: Basophils # 0.1 K/mm3 (0-0.2); Basophils % 0.7 % (0.1-2.0); Eosinophils # 0.1 K/mm3 (0.0-0.4); Eosinophils % 0.3 % (0.1-12.0); Hematocrit 44.2 % (37.0-47.0); Lymphocytes # 2.2 K/mm3 (0.7-4.5); Lymphocytes % 13.7 % (10-50); Mean Corpuscular Hemoglobin 34.7 pg (27.0-31.2); Mean Corpuscular Volume 99.3 fl (81-99); Mean Platelet Volume 9.1 fl (7.4-10.4); Monocytes # 1.2 K/mm3 (0.1-1.0); Monocytes % 7.4 % (1.7-9.3); Neutrophils # 12.7 K/mm3 (1.8-7.8); Neutrophils % 77.9 % (37.0-80.0); Platelet Count 158 K/mm3 (142-424); Red Blood Count 4.45 M/mm3 (4.20-5.40); Red Cell Distribution Width 12.9 % (11.5-17.5); White Blood Count 16.3 K/mm3 (4.8-10.8)
[2024-08-09 07:21] LABS: Hemoglobin 15.5 g/dL (12.2-16.2); MANUAL DIFFERENTIAL MANUAL DIFFERENTIAL (MANUAL DIFF)
--- NOTE | 2024-08-09 07:56 | P.CONS_ITS ---
History of Present Illness *Admission Date: 08/08/24 *Reason for visit:: Left buttock abscess *History of present illness: This is a 59-year-old female seen in consultation from the primary service for evaluation regarding left buttock abscess. Please see HPI forwarded from admission H&P below. Forwarded from admission H&P: Talisha Kemp is a 59-year-old female with a medical history significant for multiple skin infections that she has self lanced, diabetes, current smoker who presents to the ED for worsening left buttock cellulitis. She initially presented to [facility] who prescribed her Keflex. She has not been able to pick it up today as she was feeling more ill with decreased appetite and fevers. She states the skin infection has been going on for about 4 days, and she has had similar skin infections in the past that she has self lanced where there was drainage. Of note, she states she has never been diagnosed with diabetes, but she always has polyuria and polydipsia. Workup in the ED significant for WBC 18.7, sodium 130, glucose 250, and UA positive for 3+ glucose, trace bacteria and leukocyte esterase. CT abdomen/pelvis suggestive of tiny phlegmon in the left gluteal fold, as well as severe descending and sigmoid no colonic diverticulosis. Case was discussed with ED attending and decision was made to admit patient for sepsis secondary to cellulitis with possible phlegmon/abscess. [facility] Disclaimer: The information contained in this section may have been updated after the patient was seen, as this information can be updated by other users. Medical History Mild acid reflux Bladder incontinence Hypertension Seasonal allergies Chronic back pain Scoliosis Cervical spondylosis Surgical History H/O removal of cyst History of colonoscopy Family History Grandmother Cancer Father Stroke Brother Stroke Sister Cancer Social History (Updated 08/08/24 @ 18:32 by Mahsa Rivera RN) Smoking Status: Current every day smoker alcohol intake: never substance use type: denies use current occupational status: unemployed Travel in the last 8 weeks: None current occupation: [employer] Home Medications and Allergies Home Medications ?Medication ?Instructions ?Recorded ?Confirmed ?Type fluticasone propionate 50 2 spray intranasal DAILY 08/13/23 08/08/24 History mcg/actuation nasal spray,suspension cephalexin 500 mg capsule 500 mg PO BID 08/08/24 08/08/24 History meloxicam 15 mg tablet 15 mg PO DAILY 08/08/24 08/08/24 History rosuvastatin 10 mg tablet 30 mg PO DAILY 08/08/24 08/08/24 History New Prescriptions to Start Prescriptions: Allergies Allergy/AdvReac Type Severity Reaction Status Date / Time Penicillins Allergy Severe Swelling Verified 04/06/24 15:20 of Lip/Tongue/Throat Sulfa (Sulfonamide Allergy Severe shortness Verified 04/06/24 15:20 Antibiotics) of breath ketorolac [From Toradol] Allergy Mild Other Verified 08/08/24 09:59 codeine Allergy shortness Verified 04/06/24 15:20 of breath iodine Allergy Other Verified 08/08/24 09:59 metformin Allergy heart Verified 04/06/24 15:20 issues Tetracyclines Allergy Weakness Verified 04/06/24 15:20 Exam (Inpt) Vital signs and Labs for Last 24 Hours: Temp Pulse Resp BP Pulse Ox O2 Del Method 99.8 F H 84 16 121/64 95 Room Air 08/09/24 04:00 08/09/24 04:00 08/09/24 04:00 08/09/24 04:00 08/09/24 04:00 08/09/24 06:50 Laboratory Results - last 24 hr 08/08/24 09:13: Urine Color Yellow, Urine Appearance Clear, Urine pH 6.0, Ur Specific [place] 1.025, Urine Protein Trace, Urine Glucose (UA) 3+, Urine Ketones 1+, Urine Blood Negative, Urine Nitrate Negative, Urine Bilirubin Negative, Urine Urobilinogen 4.0, Ur Leukocyte Esterase Trace, Urine RBC None, Urine WBC 10-20, Ur Squamous Epith Cells 5-10, Urine Bacteria Trace 08/08/24 09:35: VBG pH 7.39, VBG pCO2 48.6, VBG pO2 25.1 L, VBG HCO3 28.8, VBG Total CO2 30.3 H, VBG O2 Saturation 59.5, VBG Base Excess 3.8 H, VBG Lactic Acid 2.2 H 08/08/24 09:45: WBC 18.7 H, RBC 5.06, Hgb 17.5 H, Hct 50.6 H, MCV 100.0 H, MCH 34.5 H, MCHC 34.5, RDW 13.1, Plt Count 178, MPV 8.5, Neut % (Auto) 83.6 H, Lymph % (Auto) 9.8 L, [place] % (Auto) 5.6, Eos % (Auto) 0.3, Baso % (Auto) 0.6, Neut # (Auto) 15.6 H, Lymph # (Auto) 1.8, [place] # (Auto) 1.1 H, Eos # (Auto) 0.1, Baso # (Auto) 0.1, Total Counted 100, Neutrophils % (Manual) 86 H, Lymphocytes % (Manual) 11, Monocytes % (Manual) 3, Platelet Estimate Normal, Macrocytosis 1+, Sodium 130 L, Potassium 3.1 L, Chloride 94 L, Carbon Dioxide 32 H, Anion Gap 7.1, BUN 11, Creatinine 0.60, Estimated Creat Clear 133, Estimated GFR 102, Est GFR ( Amer) 124, Glucose 250 H, Hemoglobin A1c 11.4 H, Calcium 9.1, P hosphorus 2.4 L, Magnesium 1.7, Total Bilirubin 0.9, AST 22, ALT 25, Alkaline Phosphatase 102, Total Protein 7.0, Albumin 3.7, Globulin 3.3 H, Albumin/Globulin Ratio 1.1, Procalcitonin 0.284, Acetone Level None detected, HIV 1&2 Antibody Rapid Nonreactive 08/08/24 14:00: Lactate 1.2 08/08/24 17:03: POC Glucose 290 H 08/08/24 20:25: Sodium 130 L, Potassium 3.1 L, Chloride 99, Carbon Dioxide 28, Anion Gap 6.1, BUN 7 D, Creatinine 0.50 L, Estimated Creat Clear 160, Estimated GFR 126, Est GFR ( Amer) 153 D, Glucose 267 H, Calcium 8.6 08/08/24 21:25: POC Glucose 297 H 08/09/24 04:51: POC Glucose 246 H 08/09/24 05:31: WBC 16.3 H, RBC 4.45, Hgb 15.5 D, Hct 44.2, MCV 99.3 H, MCH 34.7 H, MCHC 35.0, RDW 12.9, Plt Count 158, MPV 9.1, Neut % (Auto) 77.9, Lymph % (Auto) 13.7, [place] % (Auto) 7.4, Eos % (Auto) 0.3, Baso % (Auto) 0.7, Neut # (Auto) 12.7 H, Lymph # (Auto) 2.2, [place] # (Auto) 1.2 H, Eos # (Auto) 0.1, Baso # (Auto) 0.1, Sodium 130 L, Potassium 3.7, Chloride 101, Carbon Dioxide 28, Anion Gap 4.7 L, BUN 8, Creatinine 0.50 L, Estimated Creat Clear 169, Estimated GFR 126, Est GFR ( Amer) 153, Glucose 218 H, Lactate 0.9, Calcium 8.5, Phosphorus 2.6, Magnesium 2.2 D I & O for Labs for Last 24 Hours: Intake & Output 08/06/24 08/07/24 08/08/24 08/09/24 11:59 11:59 11:59 11:59 Intake Total 1848 / 1848 Output Total 0 / 0 Balance 1848 / 1848 Weight 184 lb 194 lb 12.8 oz Constitutional: no acute distress Respiratory: Absent respiratory distress Cardiac: Absent Tachycardia Comment:: Left buttock soft tissue edema with overlying cellulitis. Severe tenderness to palpation. Results Labs 08/09/24 05:31 08/09/24 05:31 Labs: Laboratory Results - last 24 hr 08/08/24 09:13: Urine Color Yellow, Urine Appearance Clear, Urine pH 6.0, Ur Specific [place] 1.025, Urine Protein Trace, Urine Glucose (UA) 3+, Urine Ketones 1+, Urine Blood Negative, Urine Nitrate Negative, Urine Bilirubin Negative, Urine Urobilinogen 4.0, Ur Leukocyte Esterase Trace, Urine RBC None, Urine WBC 10-20, Ur Squamous Epith Cells 5-10, Urine Bacteria Trace 08/08/24 09:35: VBG pH 7.39, VBG pCO2 48.6, VBG pO2 25.1 L, VBG HCO3 28.8, VBG Total CO2 30.3 H, VBG O2 Saturation 59.5, VBG Base Excess 3.8 H, VBG Lactic Acid 2.2 H 08/08/24 09:45: WBC 18.7 H, RBC 5.06, Hgb 17.5 H, Hct 50.6 H, MCV 100.0 H, MCH 34.5 H, MCHC 34.5, RDW 13.1, Plt Count 178, MPV 8.5, Neut % (Auto) 83.6 H, Lymph % (Auto) 9.8 L, [place] % (Auto) 5.6, Eos % (Auto) 0.3, Baso % (Auto) 0.6, Neut # (Auto) 15.6 H, Lymph # (Auto) 1.8, [place] # (Auto) 1.1 H, Eos # (Auto) 0.1, Baso # (Auto) 0.1, Total Counted 100, Neutrophils % (Manual) 86 H, Lymphocytes % (Manual) 11, Monocytes % (Manual) 3, Platelet Estimate Normal, Macrocytosis 1+, Sodium 130 L, Potassium 3.1 L, Chloride 94 L, Carbon Dioxide 32 H, Anion Gap 7.1, BUN 11, Creatinine 0.60, Estimated Creat Clear 133, Estimated GFR 102, Est GFR ( Amer) 124, Glucose 250 H, Hemoglobin A1c 11.4 H, Calcium 9.1, P hosphorus 2.4 L, Magnesium 1.7, Total Bilirubin 0.9, AST 22, ALT 25, Alkaline Phosphatase 102, Total Protein 7.0, Albumin 3.7, Globulin 3.3 H, Albumin/Globulin Ratio 1.1, Procalcitonin 0.284, Acetone Level None detected, HIV 1&2 Antibody Rapid Nonreactive 08/08/24 14:00: Lactate 1.2 08/08/24 17:03: POC Glucose 290 H 08/08/24 20:25: Sodium 130 L, Potassium 3.1 L, Chloride 99, Carbon Dioxide 28, Anion Gap 6.1, BUN 7 D, Creatinine 0.50 L, Estimated Creat Clear 160, Estimated GFR 126, Est GFR ( Amer) 153 D, Glucose 267 H, Calcium 8.6 08/08/24 21:25: POC Glucose 297 H 08/09/24 04:51: POC Glucose 246 H 08/09/24 05:31: WBC 16.3 H, RBC 4.45, Hgb 15.5 D, Hct 44.2, MCV 99.3 H, MCH 34.7 H, MCHC 35.0, RDW 12.9, Plt Count 158, MPV 9.1, Neut % (Auto) 77.9, Lymph % (Auto) 13.7, [place] % (Auto) 7.4, Eos % (Auto) 0.3, Baso % (Auto) 0.7, Neut # (Auto) 12.7 H, Lymph # (Auto) 2.2, [place] # (Auto) 1.2 H, Eos # (Auto) 0.1, Baso # (Auto) 0.1, Sodium 130 L, Potassium 3.7, Chloride 101, Carbon Dioxide 28, Anion Gap 4.7 L, BUN 8, Creatinine 0.50 L, Estimated Creat Clear 169, Estimated GFR 126, Est GFR ( Amer) 153, Glucose 218 H, Lactate 0.9, Calcium 8.5, Phosphorus 2.6, Magnesium 2.2 D Assessment and Plan *Assessment and plan (1) Left buttock abscess: Status: Acute Category: Medical Code(s): L02.31 - Cutaneous abscess of buttock (2) Cellulitis of buttock, left: Status: Acute Category: Medical Code(s): L03.317 - Cellulitis of buttock Plan The patient has now been made NPO for incision and drainage of left buttock abscess later today. I have discussed the risks and benefits including, but not limited to: Bleeding Infection Damage to surrounding tissue Inherent risks of sedation The patient agrees to proceed.
[2024-08-09 08:24] LABS: HCV Ab Non Reactive (Non Reactive)
[2024-08-09] MEDS: CEFEPIME HCL 1 GM in 0.9 % SODIUM CHLORIDE 50 ML IV ×2 (08:25→20:48)
[2024-08-09 08:50] LABS: Lymphocytes % 11 % (10-50); Monocytes % 2 % (2-9); Neutrophils % 87 % (42-76); Platelet Estimate Normal; RBC Morphology Normal; Total Cells Counted 100
[2024-08-09 11:17] LABS: POC Glucose,Bedside 248 (70-110)
--- NOTE | 2024-08-09 12:25 | PC.NURSE ---
pt of floor to surgery
[2024-08-09] MEDS: CLINDAMYCIN PHOSPHATE/D5W 900 MG/50 ML PIGGYBACK 100 MG IV (12:40)
[2024-08-09] MEDS: METRONIDAZ/SOD CHL 500 MG/100 ML PIGGYBACK 100 MG IV (12:40)
[2024-08-09] MEDS: LIDOCAINE 1% 20ML MDV 20 ML (12:51)
--- NOTE | 2024-08-09 12:58 | EXP.ANES.CKL ---
[facility] Disclaimer: The information contained in this section may have been updated after the patient was seen, as this information can be updated by other users. Medical History Mild acid reflux Bladder incontinence Hypertension Seasonal allergies Chronic back pain Scoliosis Cervical spondylosis Surgical History H/O removal of cyst History of colonoscopy Family History Grandmother Cancer Father Stroke Brother Stroke Sister Cancer Social History (Updated 08/08/24 @ 18:32 by Mahsa Rivera RN) Smoking Status: Current every day smoker alcohol intake: never substance use type: denies use current occupational status: unemployed Travel in the last 8 weeks: None current occupation: [employer] [employer] Anesthesia Checklist Patient Identification Patient Identification: Verbal (Name & ) Structural Data Admitted From: Inpatient Planned Operative Procedure/s: i/d r buttock Consent for Planned Operative Procedure(s) Verified: Yes NPO Status Verified Time NPO: 07:00 Airway Assessment Mallampati Score:: Class II C-Spine Mobility Assessed: Yes TMJ Mobility Assessed: Yes Dentition: Edentulous Neurological Assessment Level of Consciousness: Awake, Alert and Appropriate Anesthesia Plan Anesthesia Risk discussed: Yes Anesthesia Plan: Verified ASA Class: III Anesthesia Type: General
--- NOTE | 2024-08-09 13:12 | EXP.OP.NOTE ---
Date of procedure: 08/09/24 Pre-op Diagnosis:: Left buttock abscess Post-op Diagnosis:: Same Procedure performed:: Incision and drainage of complex deep left buttock abscess Surgeon:: Dre Hi MD LEAF CONDITIONER HELPER:: Juan Kline Anesthesia: local and LMA Estimated blood loss (mL): 15 Operative findings:: Large complex deep left buttock abscess with significant associated purulence Operative note:: After informed consent was obtained the patient was taken to the operating room and placed in the right lateral decubitus position. General anesthesia with laryngeal mask airway was achieved. Her buttock region was prepped and draped in a sterile fashion. An elliptical incision was made over the central portion of the left centro-medial buttock abscess. Electrocautery was utilized to transect through the deeper subcutaneous tissue. A large pocket of purulence in the deep subcutaneous tissue was encountered. Fluid was obtained for Gram stain/culture. Necrotic surrounding debris was excised with electrocautery. Electrocautery was then utilized to achieve hemostasis. The wound was packed with moistened Kerlix. The entire region was then infiltrated with 1% lidocaine. Dressings were applied and the patient was transferred to recovery in stable condition. Condition: stable Disposition: PACU Specimens:: Fluid for Gram stain/culture Complications:: No immediate
--- NOTE | 2024-08-09 13:22 | P.PNANES_ITS ---
[facility] Anesthesia Record Part I Anesthesia Record I Intake, IV Amount: 600 Hydration: Adequate Estimated blood loss (mL): 10 Urine output (mL): 0 Blood Pressure: 110/73 SaO2: 95 Pulse Rate: 84 Airway Patency: Patent Respiratory Rate: 16 Temperature: 99.3 F Patient is:: Drowsy and Stable Stable to PACU at:: 13:15
[2024-08-09] MEDS: NICOTINE 21MG/24HR PATCH 21 MG TD (15:34)
[2024-08-09 16:41] LABS: POC Glucose,Bedside 381 (70-110)
--- NOTE | 2024-08-09 17:18 | PC.NURSE ---
pt had I&D of lt buttock today. pt's wound is currently dressed and packed with kerlix. anastacia stated not to begin dsg changes until tomorrow 08/10. pt is currently on room air. pt continues to be on post op vital signs. pt has had no complaints since arriving back from surgery. call light within reach. no new orders t this time
[2024-08-09] MEDS: ACETAMINOPHEN 325MG TAB 650 MG PO (18:09)
--- NOTE | 2024-08-09 20:04 | EXP.PN ---
Subjective *Date: 08/09/24 *Time: 22:05 Interval history: Patient resting comfortably in bed after procedure without acute concerns. Exam Data for Last 24 hours Vital signs and Labs for Last 24 Hours: Temp Pulse Resp BP Pulse Ox O2 Del Method O2 Flow Rate 99.8 F H 77 20 129/77 94 L Room Air 1 08/09/24 17:40 08/09/24 17:40 08/09/24 17:40 08/09/24 17:40 08/09/24 17:40 08/09/24 18:38 08/09/24 14:40 Laboratory Results - last 24 hr 08/08/24 09:45: Hepatitis C Antibody Non reactive 08/08/24 17:03: POC Glucose 290 H 08/08/24 20:25: Sodium 130 L, Potassium 3.1 L, Chloride 99, Carbon Dioxide 28, Anion Gap 6.1, BUN 7 D, Creatinine 0.50 L, Estimated Creat Clear 160, Estimated GFR 126, Est GFR ( Amer) 153 D, Glucose 267 H, Calcium 8.6 08/08/24 21:25: POC Glucose 297 H 08/09/24 04:51: POC Glucose 246 H 08/09/24 05:31: WBC 16.3 H, RBC 4.45, Hgb 15.5 D, Hct 44.2, MCV 99.3 H, MCH 34.7 H, MCHC 35.0, RDW 12.9, Plt Count 158, MPV 9.1, Neut % (Auto) 77.9, Lymph % (Auto) 13.7, [place] % (Auto) 7.4, Eos % (Auto) 0.3, Baso % (Auto) 0.7, Neut # (Auto) 12.7 H, Lymph # (Auto) 2.2, [place] # (Auto) 1.2 H, Eos # (Auto) 0.1, Baso # (Auto) 0.1, Total Counted 100, Neutrophils % (Manual) 87 H, Lymphocytes % (Manual) 11, Monocytes % (Manual) 2, Platelet Estimate Normal, RBC Morphology Normal, Sodium 130 L, Potassium 3.7, Chloride 101, Carbon Dioxide 28, Anion Gap 4.7 L, BUN 8, Creatinine 0.50 L, Estimated Creat Clear 169, Estimated GFR 126, Est GFR ( Amer) 153, Glucose 218 H, Lactate 0.9, Calcium 8.5, Phosphorus 2.6, Magnesium 2.2 D 08/09/24 11:08: POC Glucose 248 H 08/09/24 16:34: POC Glucose 381 H* I & O for Last 24 hours: Intake & Output 08/06/24 08/07/24 08/08/24 08/09/24 23:59 23:59 23:59 23:59 Intake Total 1150 / 1150 2978 / 2978 Output Total 0 / 0 150 / 150 Balance 1150 / 1150 2828 / 2828 Weight 83.461 kg 88.36 kg Microbiology Reports for the Last 24 Hours: Microbiology 08/09/24 Unknown Buttock - Abscess Gram Stain - Final 08/08/24 17:40 Blood Blood Culture - Preliminary NO GROWTH AFTER 24 HOURS 08/08/24 17:50 Blood Blood Culture - Preliminary NO GROWTH AFTER 24 HOURS 08/08/24 21:30 Buttock Gram Stain - Final 08/08/24 09:53 Blood Blood Culture - Preliminary NO GROWTH AFTER 24 HOURS 08/08/24 09:35 Blood Blood Culture - Preliminary NO GROWTH AFTER 24 HOURS Constitutional Constitutional: no acute distress *Routine HEENT Exam Head: Present normocephalic Eye: Present EOMI and PERRL ENT: Present mucous membranes moist *Routine Neck Exam Neck: Present supple; Absent lymphadenopathy *Routine Respiratory Exam Respiratory: Present CTA bilaterally *Routine Cardiovascular Exam Cardiovascular: Present RRR *Routine Abdominal Exam Abdominal: Present soft and normoactive bowel sounds; Absent tenderness *Routine Extremities Exam Extremities: Absent cyanosis, clubbing or edema *Routine Skin Exam Skin: Present warm; Absent rash *Routine Neurological Exam Neurological: Present alert and oriented X3 Assessment and Plan *Assessment and plan (1) Sepsis: Status: Acute Category: Medical Code(s): A41.9 - Sepsis, unspecified organism (2) Cellulitis of buttock, left: Status: Acute Category: Medical Code(s): L03.317 - Cellulitis of buttock (3) Diabetes: Status: Acute Category: Medical Code(s): E11.9 - Type 2 diabetes mellitus without complications Plan Talisha Kemp is a 59-year-old female with a medical history significant for multiple skin infections that she has self lanced, diabetes, current smoker who presents to the ED for worsening left buttock cellulitis. She initially presented to [facility] who prescribed her Keflex. She has not been able to pick it up today as she was feeling more ill with decreased appetite and fevers. She states the skin infection has been going on for about 4 days, and she has had similar skin infections in the past that she has self lanced where there was drainage. Of note, she states she has never been diagnosed with diabetes, but she always has polyuria and polydipsia. Workup in the ED significant for WBC 18.7, sodium 130, glucose 250, and UA positive for 3+ glucose, trace bacteria and leukocyte esterase. CT abdomen/pelvis suggestive of tiny phlegmon in the left gluteal fold, as well as severe descending and sigmoid no colonic diverticulosis. Case was discussed with ED attending and decision was made to admit patient for sepsis secondary to cellulitis with possible phlegmon/abscess. #Sepsis #Cellulitis of left buttock #Possible abscess ? Initial WBC 18.7, temperature up to 100.7, with tachycardia on presentation. - S/p incision and drainage by surgery 08/09/24. - Patient resting comfortably after procedure this afternnoon without acute concerns. ? WBC improving today to 16.3. Afebrile currently. ? IV vancomycin, cefepime for empiric coverage. ? Follow-up blood cultures. ? Follow-up wound cultures. ? Patient's uncontrolled diabetes is likely contributing to recurrent skin infections. #Diabetes ? Patient states she has a longstanding history of polyuria and polydipsia. ? Blood glucose initially 250. UA shows 3+ glucose. ? Hemoglobin A1c 08/08/2024 is 11.4. ? LDSSI, ACHS glucose checks. ? Started Lantus 10 units nightly. ? Will likely need to be discharged on insulin, as well as metformin on discharge. Full code Lovenox 40 mg
[2024-08-09] MEDS: INSULIN GLARGINE 100 UNITS/ML 3ML FLEXPEN 10 UNIT SQ (20:48)
[2024-08-09 21:06] LABS: POC Glucose,Bedside 450 (70-110)
[2024-08-09] MEDS: humaLOG 100 UNITS/ML 10ML VIAL (SSI) 8 UNIT SQ (22:30)
[2024-08-10] VITALS (7 sets, daily range): BP systolic 104–147; BP diastolic 65–88; PULSE 62–94; RESP 16–18; TEMP 36.6–37.4; O2SAT 93–97; BMI 36.7
[2024-08-10] MEDS: LACTATED RINGERS 1000ML 1,000 ML 50 ML IV (02:03)
[2024-08-10 04:37] LABS: Basophils # 0.1 K/mm3 (0-0.2); Basophils % 0.6 % (0.1-2.0); Eosinophils # 0.1 K/mm3 (0.0-0.4); Eosinophils % 0.6 % (0.1-12.0); Hematocrit 42.4 % (37.0-47.0); Hemoglobin 14.2 g/dL (12.2-16.2); Lymphocytes # 1.5 K/mm3 (0.7-4.5); Lymphocytes % 9.4 % (10-50); Mean Corpuscular HGB Conc 33.4 g/dL (31.8-35.4); Mean Corpuscular Volume 101.6 fl (81-99); Mean Platelet Volume 9.1 fl (7.4-10.4); Monocytes # 0.8 K/mm3 (0.1-1.0); Monocytes % 5.2 % (1.7-9.3); Neutrophils # 13.2 K/mm3 (1.8-7.8); Neutrophils % 84.2 % (37.0-80.0); Platelet Count 195 K/mm3 (142-424); Red Blood Count 4.17 M/mm3 (4.20-5.40); Red Cell Distribution Width 12.9 % (11.5-17.5); White Blood Count 15.7 K/mm3 (4.8-10.8)
[2024-08-10 04:56] LABS: Chloride 103 mmol/L (98-107); Sodium 135 mmol/L (136-145)
[2024-08-10 04:58] LABS: MANUAL DIFFERENTIAL MANUAL DIFFERENTIAL (MANUAL DIFF)
[2024-08-10 04:59] LABS: Blood Urea Nitrogen 12 mg/dl (7-17); Calcium 9.2 mg/dl (8.4-10.2); Carbon Dioxide 29 mmol/L (22.0-30.0); Creatinine Clearance Estimated 169 mL/min (50-200); Estimated Glomerular Filt Rate 126 ml/min (>60); GFR (African American) 153 ML/MIN (>60); Glucose 287 mg/dl (74-100)
[2024-08-10 05:04] LABS: Vancomycin,Trough 6.1 ug/mL (5.0-10.0)
[2024-08-10] MEDS: VANCOMYCIN HCL 1,250 MG in 0.9 % SODIUM CHLORIDE 250 ML 125 MG IV (05:41)
[2024-08-10] MEDS: humaLOG 100 UNITS/ML 10ML VIAL (SSI) SQ ×4 (05:41→21:38)
[2024-08-10 06:02] LABS: POC Glucose,Bedside 308 (70-110)
[2024-08-10 06:30] LABS: Lymphocytes % 12 % (10-50); Monocytes % 6 % (2-9); Neutrophils % 82 % (42-76); Total Cells Counted 100
[2024-08-10 06:32] LABS: Macrocytosis 1+; Platelet Estimate Normal
--- NOTE | 2024-08-10 07:39 | EXP.SURG.PN ---
Subjective Patient reports: no new complaints Exam Data for Last 24 hours Vital signs and Labs for Last 24 Hours: Temp Pulse Resp BP Pulse Ox O2 Del Method O2 Flow Rate 98.2 F 67 16 104/65 L 97 Room Air 1 08/10/24 04:00 08/10/24 04:00 08/10/24 04:00 08/10/24 04:00 08/10/24 04:00 08/10/24 06:38 08/09/24 14:40 Laboratory Results - last 24 hr 08/08/24 09:45: Hepatitis C Antibody Non reactive 08/09/24 05:31: Total Counted 100, Neutrophils % (Manual) 87 H, Lymphocytes % (Manual) 11, Monocytes % (Manual) 2, Platelet Estimate Normal, RBC Morphology Normal 08/09/24 11:08: POC Glucose 248 H 08/09/24 16:34: POC Glucose 381 H* 08/09/24 20:47: POC Glucose 450 H* 08/10/24 02:20: Magnesium 2.0 08/10/24 04:27: WBC 15.7 H, RBC 4.17 L, Hgb 14.2, Hct 42.4, MCV 101.6 H, MCH 34.0 H, MCHC 33.4, RDW 12.9, Plt Count 195, MPV 9.1, Neut % (Auto) 84.2 H, Lymph % (Auto) 9.4 L, [place] % (Auto) 5.2, Eos % (Auto) 0.6, Baso % (Auto) 0.6, Neut # (Auto) 13.2 H, Lymph # (Auto) 1.5, [place] # (Auto) 0.8, Eos # (Auto) 0.1, Baso # (Auto) 0.1, Total Counted 100, Neutrophils % (Manual) 82 H, Lymphocytes % (Manual) 12, Monocytes % (Manual) 6, Platelet Estimate Normal, Macrocytosis 1+, Sodium 135 L, Potassium 4.0, Chloride 103, Carbon Dioxide 29, Anion Gap 7.0, BUN 12 D, Creatinine 0.50 L, Estimated Creat Clear 169, Estimated GFR 126, Est GFR ( Amer) 153, Glucose 287 H D, Calcium 9.2, Vancomycin Trough 6.1 08/10/24 05:40: POC Glucose 308 H* I & O for Last 24 hours: Intake & Output 10/04/24 10/05/24 10/06/24 10/07/24 11:59 11:59 11:59 11:59 Intake Total 2613 / 2613 2174 / 2174 Output Total 0 / 0 150 / 150 Balance 2613 / 2613 2024 Weight 184 lb 194 lb 12.8 oz 199 lb 12.8 oz Microbiology Reports for the Last 24 Hours: Microbiology 08/09/24 Unknown Buttock - Abscess Gram Stain - Final 08/08/24 17:40 Blood Blood Culture - Preliminary NO GROWTH AFTER 24 HOURS 08/08/24 17:50 Blood Blood Culture - Preliminary NO GROWTH AFTER 24 HOURS 08/08/24 21:30 Buttock Gram Stain - Final 08/08/24 09:53 Blood Blood Culture - Preliminary NO GROWTH AFTER 24 HOURS 08/08/24 09:35 Blood Blood Culture - Preliminary NO GROWTH AFTER 24 HOURS Constitutional Constitutional: no acute distress *Routine Respiratory Exam Respiratory: Absent respiratory distress *Routine Cardiovascular Exam Cardiovascular: Absent tachycardia *Routine Skin Exam Comments: Dressing intact. No spreading cellulitis. Progress Note: A&P Assessment and plan (1) Left buttock abscess: Status: Acute Assessment and plan: Overall, doing well status post incision and drainage. Continue overall management as per primary service Dressing changes at least daily (2) Cellulitis of buttock, left: Status: Acute
--- NOTE | 2024-08-10 07:53 | P.PNANES_ITS ---
[facility] Anesthesia Record Part II Anesthesia Record Part II Discharge Time: 13:45 Destination: Medical Surgical Department PACU nurse assessment reviewed?: Yes Patient Condition:: Good Anesthesia Complications:: None Swallowing reflex intact?: Yes Airway Patency: Patent Cyanosis?: No Blood Pressure: 123/76 SaO2: 95 Respiratory Rate: 16 Pulse Rate: 94 Temperature: 99.3 F Mental Status: Alert & Oriented Pain level:: 0 Nausea and/or vomitting:: None Intake, IV Amount: 0 Hydration: Adequate
[2024-08-10] MEDS: CEFEPIME HCL 1 GM in 0.9 % SODIUM CHLORIDE 50 ML IV ×2 (09:04→21:22)
[2024-08-10] MEDS: ENOXAPARIN 40MG/0.4ML SYRINGE 40 MG SQ (09:05)
--- NOTE | 2024-08-10 09:15 | PC.NURSE ---
pt had I&D performed yesterday on left buttock. instructed to do dsg changes starting today with kerlix. pt dsg was changed using kerlix this morning. pt tolerated dsg change well and had no complaints throughout. pt educated on hand hygiene and to not touch dsg or affected area.
[2024-08-10 09:37] LABS: Vancomycin,Peak 17.3 ug/ml (11-39)
--- NOTE | 2024-08-10 10:05 | EXP.PHA.CONS ---
Pharmacy Consult Date: 08/10/24 Time: 10:05 Referring provider: DR. OSBORNE Reason for Consult:: VANCOMYCIN LEVELS AND DOSE CHANGE Allergies Allergy/AdvReac Type Severity Reaction Status Date / Time Penicillins Allergy Severe Swelling Verified 04/06/24 15:20 of Lip/Tongue/Throat Sulfa (Sulfonamide Allergy Severe shortness Verified 04/06/24 15:20 Antibiotics) of breath ketorolac [From Toradol] Allergy Mild Other Verified 08/08/24 09:59 codeine Allergy shortness Verified 04/06/24 15:20 of breath iodine Allergy Other Verified 08/08/24 09:59 metformin Allergy heart Verified 04/06/24 15:20 issues Tetracyclines Allergy Weakness Verified 04/06/24 15:20 Home Medications ?Medication ?Instructions ?Recorded ?Confirmed ?Type cephalexin 500 mg capsule 500 mg PO BID 08/08/24 08/08/24 History meloxicam 15 mg tablet 15 mg PO DAILY 08/08/24 08/08/24 History rosuvastatin 10 mg tablet 30 mg PO HS 08/08/24 08/09/24 History New Prescriptions to Start Prescriptions: Height: 1.57 m Weight: 90.628 kg Laboratory Results:: Laboratory Results - last 24 hr 08/09/24 11:08: POC Glucose 248 H 08/09/24 16:34: POC Glucose 381 H* 08/09/24 20:47: POC Glucose 450 H* 08/10/24 02:20: Magnesium 2.0 08/10/24 04:27: WBC 15.7 H, RBC 4.17 L, Hgb 14.2, Hct 42.4, MCV 101.6 H, MCH 34.0 H, MCHC 33.4, RDW 12.9, Plt Count 195, MPV 9.1, Neut % (Auto) 84.2 H, Lymph % (Auto) 9.4 L, [place] % (Auto) 5.2, Eos % (Auto) 0.6, Baso % (Auto) 0.6, Neut # (Auto) 13.2 H, Lymph # (Auto) 1.5, [place] # (Auto) 0.8, Eos # (Auto) 0.1, Baso # (Auto) 0.1, Total Counted 100, Neutrophils % (Manual) 82 H, Lymphocytes % (Manual) 12, Monocytes % (Manual) 6, Platelet Estimate Normal, Macrocytosis 1+, Sodium 135 L, Potassium 4.0, Chloride 103, Carbon Dioxide 29, Anion Gap 7.0, BUN 12 D, Creatinine 0.50 L, Estimated Creat Clear 169, Estimated GFR 126, Est GFR ( Amer) 153, Glucose 287 H D, Calcium 9.2, Vancomycin Trough 6.1 08/10/24 05:40: POC Glucose 308 H* 08/10/24 09:02: Vancomycin Peak 17.3 Medical History: Medical History (Updated 08/09/24 @ 07:57 by Dre Hi MD) Mild acid reflux Bladder incontinence Hypertension Seasonal allergies Chronic back pain Scoliosis Cervical spondylosis Assessment and Plan Assessment and plan all Dx Assessment and Plan for all problems:: BASED ON PATIENT FACTORS AND VANCOMYCIN TROUGH/PEAK LEVELS OF 6.1/17.3 RESPECTIVELY, RECOMMEND INCREASING VANCOMYCIN DOSE TO 1,750MG EVERY 12 HOURS. PHARMACY WILL CONTINUE TO MONITOR AND ADJUST DOSE APPROPRIATE. -YARY CUNNINGHAM, EVAND
[2024-08-10] MEDS: NICOTINE 21MG/24HR PATCH 21 MG TD (11:15)
[2024-08-10 11:16] LABS: POC Glucose,Bedside 267 (70-110)
--- NOTE | 2024-08-10 15:36 | PC.NURSE ---
pt remains on room air and alert and oriented this shift. pt dsg on lt buttock was changed this morning per order. pt has not had any complaints today. pt has been educated numerous times this shift to leave affected area alone and to not touch area. pt has been using the bsc without assistance. no new orders at this time. call light within reach.
[2024-08-10] MEDS: VANCOMYCIN HCL 1,750 MG in 0.9 % SODIUM CHLORIDE 250 ML 125 MG IV (17:21)
[2024-08-10 17:35] LABS: POC Glucose,Bedside 262 (70-110)
[2024-08-10] MEDS: INSULIN GLARGINE 100 UNITS/ML 3ML FLEXPEN 10 UNIT SQ (21:38)
[2024-08-10 23:19] LABS: POC Glucose,Bedside 284 (70-110)
--- NOTE | 2024-08-10 23:21 | P.PN_ITS ---
Subjective *Date: 08/10/24 *Time: 23:21 Exam Data for Last 24 hours Vital signs and Labs for Last 24 Hours: Temp Pulse Resp BP Pulse Ox O2 Del Method O2 Flow Rate 99.1 F 72 16 124/66 97 Room Air 1 08/10/24 20:00 08/10/24 20:00 08/10/24 20:00 08/10/24 20:00 08/10/24 20:00 08/10/24 20:00 08/09/24 14:40 Laboratory Results - last 24 hr 08/10/24 02:20: Magnesium 2.0 08/10/24 04:27: WBC 15.7 H, RBC 4.17 L, Hgb 14.2, Hct 42.4, MCV 101.6 H, MCH 34.0 H, MCHC 33.4, RDW 12.9, Plt Count 195, MPV 9.1, Neut % (Auto) 84.2 H, Lymph % (Auto) 9.4 L, [place] % (Auto) 5.2, Eos % (Auto) 0.6, Baso % (Auto) 0.6, Neut # (Auto) 13.2 H, Lymph # (Auto) 1.5, [place] # (Auto) 0.8, Eos # (Auto) 0.1, Baso # (Auto) 0.1, Total Counted 100, Neutrophils % (Manual) 82 H, Lymphocytes % (Manual) 12, Monocytes % (Manual) 6, Platelet Estimate Normal, Macrocytosis 1+, Sodium 135 L, Potassium 4.0, Chloride 103, Carbon Dioxide 29, Anion Gap 7.0, BUN 12 D, Creatinine 0.50 L, Estimated Creat Clear 169, Estimated GFR 126, Est GFR ( Amer) 153, Glucose 287 H D, Calcium 9.2, Vancomycin Trough 6.1 08/10/24 05:40: POC Glucose 308 H* 08/10/24 09:02: Vancomycin Peak 17.3 08/10/24 11:02: POC Glucose 267 H 08/10/24 16:50: POC Glucose 262 H 08/10/24 21:27: POC Glucose 284 H I & O for Last 24 hours: Intake & Output 08/07/24 08/08/24 08/09/24 08/10/24 23:59 23:59 23:59 23:59 Intake Total 1150 / 1150 2978 / 3638 2700 / 2700 Output Total 0 / 0 150 / 150 1 / 1 Balance 1150 / 1150 2828 / 3488 2699 / 2699 Weight 83.461 kg 88.36 kg 90.62 kg Microbiology Reports for the Last 24 Hours: Microbiology 08/08/24 17:50 Blood Blood Culture - Preliminary NO GROWTH AFTER 48 HOURS 08/08/24 17:40 Blood Blood Culture - Preliminary NO GROWTH AFTER 48 HOURS 08/09/24 Unknown Buttock - Abscess Gram Stain - Final 08/09/24 Unknown Buttock - Abscess Abscess Culture - Preliminary NO GROWTH AFTER 24 HOURS 08/08/24 09:53 Blood Blood Culture - Preliminary NO GROWTH AFTER 48 HOURS 08/08/24 09:35 Blood Blood Culture - Preliminary NO GROWTH AFTER 48 HOURS 08/08/24 21:30 Buttock Gram Stain - Final 08/08/24 21:30 Buttock Wound Culture - Preliminary 08/08/24 09:13 Urine,Clean Catch Urine Culture - Final Constitutional Constitutional: no acute distress *Routine HEENT Exam Head: Present normocephalic Eye: Present EOMI and PERRL ENT: Present mucous membranes moist *Routine Neck Exam Neck: Present supple; Absent lymphadenopathy *Routine Respiratory Exam Respiratory: Present CTA bilaterally *Routine Cardiovascular Exam Cardiovascular: Present RRR *Routine Abdominal Exam Abdominal: Present soft and normoactive bowel sounds; Absent tenderness *Routine Rectal Exam Comments: Left buttock packing in place without drainage. *Routine Extremities Exam Extremities: Absent cyanosis, clubbing or edema *Routine Skin Exam Skin: Present warm; Absent rash *Routine Neurological Exam Neurological: Present alert and oriented X3 Assessment and Plan *Assessment and plan (1) Sepsis: Status: Acute Category: Medical Code(s): A41.9 - Sepsis, unspecified organism (2) Cellulitis of buttock, left: Status: Acute Category: Medical Code(s): L03.317 - Cellulitis of buttock (3) Diabetes: Status: Acute Category: Medical Code(s): E11.9 - Type 2 diabetes mellitus without complications Plan Talisha Kemp is a 59-year-old female with a medical history significant for multiple skin infections that she has self lanced, diabetes, current smoker who presents to the ED for worsening left buttock cellulitis. She initially presented to [facility] who prescribed her Keflex. She has not been able to pick it up today as she was feeling more ill with decreased appetite and fevers. She states the skin infection has been going on for about 4 days, and she has had similar skin infections in the past that she has self lanced where there was drainage. Of note, she states she has never been diagnosed with diabetes, but she always has polyuria and polydipsia. Workup in the ED significant for WBC 18.7, sodium 130, glucose 250, and UA positive for 3+ glucose, trace bacteria and leukocyte esterase. CT abdomen/pelvis suggestive of tiny phlegmon in the left gluteal fold, as well as severe descending and sigmoid no colonic diverticulosis. Case was discussed with ED attending and decision was made to admit patient for sepsis secondary to cellulitis with possible phlegmon/abscess. #Sepsis #Cellulitis, abscess of left buttock ? Initial WBC 18.7, temperature up to 100.7, with tachycardia on presentation. - S/p incision and drainage by surgery 08/09/24. - Patient sitting comfortably in chair without issues today. No significant pain. ? WBC improving today to 15.7 today. Afebrile. ? IV vancomycin, cefepime for empiric coverage. ? Blood cultures NGTD 24 hours. ? Awaiting wound cultures, then tailor antibiotics for discharge. ? Patient's uncontrolled diabetes is likely contributing to recurrent skin infections. #Diabetes ? Patient states she has a longstanding history of polyuria and polydipsia. ? Blood glucose initially 250. UA shows 3+ glucose. ? Hemoglobin A1c 08/08/2024 is 11.4. ? LDSSI, ACHS glucose checks. ? Started Lantus 10 units nightly. Adjust based on SSI needs. ? Will likely need to be discharged on insulin, as well as metformin on discharge. Full code Lovenox 40 mg
[2024-08-11] VITALS: BP 125/71; PULSE 60; PULSE 63; RESP 14; TEMP 36.7; O2SAT 95
[2024-08-11 04:00] VITALS: BP 132/85; PULSE 60; PULSE 68; RESP 18; TEMP 36.8; O2SAT 96; BMI 37.7
[2024-08-11] MEDS: VANCOMYCIN HCL 1,750 MG in 0.9 % SODIUM CHLORIDE 250 ML 125 MG IV (04:57)
--- NOTE | 2024-08-11 06:22 | PC.NURSE ---
Patient is alert and oriented x4. Patient was observed to have eyes closed, respirations even and unlabored on room air, and no apparent distress throughout the night. Patient self-turns in bed. She has gotten up to the bedside commode multiple times throughout the shift to void. Patient's gaping wound on her lower left buttock was repacked this shift with one piece of kerlix trim. Patient has not complained of any pain during repacking or at any other times during this shift. She tolerated the wound-packing very well. Upon auscultation, patient's left lung was noticed to have more diminished sounds compared to the right (clear lung sounds). Her bowel sounds were active in all quadrants. She has been running normal sinus rhythm on telemetry. She has received her scheduled medications and IV antibiotics per JAN. She currently has lactated ringers infusing at 50 mL/hr intravenously. Vital signs have remained stable throughout this shift. Abscess cultures are still pending. She is currently sitting up in bed drinking coffee. At this time, the patient does not have any further complaints. No acute changes noted thus far. Call light within reach.
[2024-08-11 06:49] LABS: Basophils # 0.1 K/mm3 (0-0.2); Basophils % 1.1 % (0.1-2.0); Eosinophils # 0.1 K/mm3 (0.0-0.4); Eosinophils % 0.7 % (0.1-12.0); Hematocrit 43.9 % (37.0-47.0); Hemoglobin 14.4 g/dL (12.2-16.2); Lymphocytes # 2.8 K/mm3 (0.7-4.5); Lymphocytes % 22.6 % (10-50); Mean Corpuscular HGB Conc 32.8 g/dL (31.8-35.4); Mean Corpuscular Hemoglobin 33.4 pg (27.0-31.2); Mean Corpuscular Volume 101.9 fl (81-99); Mean Platelet Volume 8.8 fl (7.4-10.4); Monocytes # 1.1 K/mm3 (0.1-1.0); Monocytes % 8.8 % (1.7-9.3); Neutrophils # 8.3 K/mm3 (1.8-7.8); Neutrophils % 66.9 % (37.0-80.0); Platelet Count 222 K/mm3 (142-424); Red Cell Distribution Width 12.9 % (11.5-17.5); White Blood Count 12.4 K/mm3 (4.8-10.8)
[2024-08-11] MEDS: humaLOG 100 UNITS/ML 10ML VIAL (SSI) SQ ×2 (06:56→11:25)
--- NOTE | 2024-08-11 06:56 | EXP.SURG.PN ---
Subjective Patient reports: no new complaints Exam Data for Last 24 hours Vital signs and Labs for Last 24 Hours: Temp Pulse Resp BP Pulse Ox O2 Del Method O2 Flow Rate 98.3 F 68 18 132/85 96 Room Air 1 08/11/24 04:00 08/11/24 04:00 08/11/24 04:00 08/11/24 04:00 08/11/24 04:00 08/11/24 04:00 08/09/24 14:40 Laboratory Results - last 24 hr 08/10/24 09:02: Vancomycin Peak 17.3 08/10/24 11:02: POC Glucose 267 H 08/10/24 16:50: POC Glucose 262 H 08/10/24 21:27: POC Glucose 284 H I & O for Last 24 hours: Intake & Output 08/08/24 08/09/24 08/10/24 08/11/24 11:59 11:59 11:59 11:59 Intake Total 2613 / 2613 3015 / 3015 1723 / 1723 Output Total 0 / 0 151 / 151 0 / 0 Balance 2613 / 2613 2864 / 2864 1723 / 1723 Weight 184 lb 194 lb 12.8 oz 199 lb 12.8 oz 204 lb 14.4 oz Microbiology Reports for the Last 24 Hours: Microbiology 08/08/24 17:50 Blood Blood Culture - Preliminary NO GROWTH AFTER 48 HOURS 08/08/24 17:40 Blood Blood Culture - Preliminary NO GROWTH AFTER 48 HOURS 08/09/24 Unknown Buttock - Abscess Gram Stain - Final 08/09/24 Unknown Buttock - Abscess Abscess Culture - Preliminary NO GROWTH AFTER 24 HOURS 08/08/24 09:53 Blood Blood Culture - Preliminary NO GROWTH AFTER 48 HOURS 08/08/24 09:35 Blood Blood Culture - Preliminary NO GROWTH AFTER 48 HOURS 08/08/24 21:30 Buttock Gram Stain - Final 08/08/24 21:30 Buttock Wound Culture - Preliminary 08/08/24 09:13 Urine,Clean Catch Urine Culture - Final Constitutional Constitutional: no acute distress *Routine Respiratory Exam Respiratory: Absent respiratory distress *Routine Cardiovascular Exam Cardiovascular: Absent tachycardia *Routine Skin Exam Comments: Dressing intact. No spreading cellulitis. Progress Note: A&P Assessment and plan (1) Left buttock abscess: Status: Acute Assessment and plan: Overall, doing well status post incision and drainage. Continue overall management as per primary service Dressing changes at least daily Outpatient follow-up (2) Cellulitis of buttock, left: Status: Acute
[2024-08-11 07:11] LABS: Chloride 103 mmol/L (98-107); Potassium 3.8 mmoL/L (3.5-5.1); Sodium 134 mmol/L (136-145)
[2024-08-11 07:14] LABS: Anion Gap 8.8 mEq/L (5-15); Blood Urea Nitrogen 11 mg/dl (7-17); Calcium 8.4 mg/dl (8.4-10.2); Carbon Dioxide 26 mmol/L (22.0-30.0); Creatinine Clearance Estimated 178 mL/min (50-200); Estimated Glomerular Filt Rate 126 ml/min (>60); GFR (African American) 153 ML/MIN (>60); Glucose 323 mg/dl (74-100)
[2024-08-11 07:34] LABS: POC Glucose,Bedside 277 (70-110)
--- NOTE | 2024-08-11 07:38 | P.DS_ITS ---
General Admission date:: 08/08/24 Discharge date: 08/11/24 HPI HPI HPI: This is a 59-year-old female seen in consultation from the primary service for evaluation regarding left buttock abscess. Please see HPI forwarded from admission H&P below. Forwarded from admission H&P: Talisha Kemp is a 59-year-old female with a medical history significant for multiple skin infections that she has self lanced, diabetes, current smoker who presents to the ED for worsening left buttock cellulitis. She initially presented to [facility] who prescribed her Keflex. She has not been able to pick it up today as she was feeling more ill with decreased appetite and fevers. She states the skin infection has been going on for about 4 days, and she has had similar skin infections in the past that she has self lanced where there was drainage. Of note, she states she has never been diagnosed with diabetes, but she always has polyuria and polydipsia. Workup in the ED significant for WBC 18.7, sodium 130, glucose 250, and UA positive for 3+ glucose, trace bacteria and leukocyte esterase. CT abdomen/pelvis suggestive of tiny phlegmon in the left gluteal fold, as well as severe descending and sigmoid no colonic diverticulosis. Case was discussed with ED attending and decision was made to admit patient for sepsis secondary to cellulitis with possible phlegmon/abscess. Hospital Course Hospital Course Hospital Course: Talisha Kemp is a 59-year-old female with a medical history significant for multiple skin infections that she has self lanced, diabetes, current smoker who presents to the ED for worsening left buttock cellulitis. She initially presented to [facility] who prescribed her Keflex. She has not been able to pick it up today as she was feeling more ill with decreased appetite and fevers. She states the skin infection has been going on for about 4 days, and she has had similar skin infections in the past that she has self lanced where there was drainage. Of note, she states she has never been diagnosed with diabetes, but she always has polyuria and polydipsia. Workup in the ED significant for WBC 18.7, sodium 130, glucose 250, and UA positive for 3+ glucose, trace bacteria and leukocyte esterase. CT abdomen/pelvis suggestive of tiny phlegmon in the left gluteal fold, as well as severe descending and sigmoid no colonic diverticulosis. Case was discussed with ED attending and decision was made to admit patient for sepsis secondary to cellulitis with possible phlegmon/abscess. Surgery was consulted during admission. Patient evaluated and I&D performed. Initiated on empiric antibiotics. Showing gradual improvement. Transition to oral antibiotics to complete course. Follow-up with surgery as an outpatient to monitor healing. Stable to discharge home. Problems addressed as follows: #Sepsis #Cellulitis, abscess of left buttock ? Initial WBC 18.7, temperature up to 100.7, with tachycardia on presentation. White count improved to 12.4 by day of discharge. Remained afebrile. S/p incision and drainage by surgery 08/09/24. Patient getting regular dressing changes. Has help at home to change dressings daily. Initially on IV vancomycin and cefepime. Based on patient's allergies, will transition to clindamycin to complete empiric course of 10 days of antibiotics for her abscess/cellulitis. Blood cultures remained negative. Wound culture still pending at time of discharge. Staph species were sensitive to clindamycin. Discussed patient's uncontrolled diabetes complicates her risk for infection. Adjustments made to regimen. Needs close follow-up with PCP for further management of her diabetes. Will have close follow-up with surgery for monitoring of wound healing. #Diabetes ? Patient states she has a longstanding history of polyuria and polydipsia. Blood glucose initially 250. UA shows 3+ glucose. Hemoglobin A1c 08/08/2024 is 11.4. LDSSI, ACHS glucose checks during mission. Started on Lantus with sliding scale insulin. Addition Argent, will continue insulin glargine 30 units nightly. Needs close follow-up with PCP for further management. Morning glucoses improving in the 200s. Total time spent on discharge 32 minutes in counseling, documentation, chart review, and direct care with patient. Exam Data for Last 24 hours Vital signs and Labs for Last 24 Hours: Temp Pulse Resp BP Pulse Ox O2 Del Method O2 Flow Rate 98.3 F 68 18 132/85 96 Room Air 1 08/11/24 04:00 08/11/24 04:00 08/11/24 04:00 08/11/24 04:00 08/11/24 04:00 08/11/24 07:00 08/09/24 14:40 Laboratory Results - last 24 hr 08/10/24 09:02: Vancomycin Peak 17.3 08/10/24 11:02: POC Glucose 267 H 08/10/24 16:50: POC Glucose 262 H 08/10/24 21:27: POC Glucose 284 H 08/11/24 06:14: WBC 12.4 H, RBC 4.30, Hgb 14.4, Hct 43.9, MCV 101.9 H, MCH 33.4 H, MCHC 32.8, RDW 12.9, Plt Count 222, MPV 8.8, Neut % (Auto) 66.9, Lymph % (Auto) 22.6, [place] % (Auto) 8.8, Eos % (Auto) 0.7, Baso % (Auto) 1.1, Neut # (Auto) 8.3 H, Lymph # (Auto) 2.8, [place] # (Auto) 1.1 H, Eos # (Auto) 0.1, Baso # (Auto) 0.1, Sodium 134 L, Potassium 3.8, Chloride 103, Carbon Dioxide 26, Anion Gap 8.8, BUN 11, Creatinine 0.50 L, Estimated Creat Clear 178, Estimated GFR 126, Est GFR ( Amer) 153, Glucose 323 H, Calcium 8.4 08/11/24 06:53: POC Glucose 277 H I & O for Last 24 hours: Intake & Output 08/08/24 08/09/24 08/10/24 08/11/24 23:59 23:59 23:59 23:59 Intake Total 1150 / 1150 2978 / 3638 2700 / 3223 523 / 523 Output Total 0 / 0 150 / 150 1 / 1 0 / 0 Balance 1150 / 1150 2828 / 3488 2699 / 3222 523 / 523 Weight 83.461 kg 88.36 kg 90.62 kg 92.941 kg Microbiology Reports for the Last 24 Hours: Microbiology 08/08/24 17:50 Blood Blood Culture - Preliminary NO GROWTH AFTER 48 HOURS 08/08/24 17:40 Blood Blood Culture - Preliminary NO GROWTH AFTER 48 HOURS 08/09/24 Unknown Buttock - Abscess Gram Stain - Final 08/09/24 Unknown Buttock - Abscess Abscess Culture - Preliminary NO GROWTH AFTER 24 HOURS 08/08/24 09:53 Blood Blood Culture - Preliminary NO GROWTH AFTER 48 HOURS 08/08/24 09:35 Blood Blood Culture - Preliminary NO GROWTH AFTER 48 HOURS 08/08/24 21:30 Buttock Gram Stain - Final 08/08/24 21:30 Buttock Wound Culture - Preliminary 08/08/24 09:13 Urine,Clean Catch Urine Culture - Final Constitutional Constitutional: no acute distress, obese, chronically ill appearing and cooperative *Routine HEENT Exam Head: Present normocephalic Eye: Present EOMI and PERRL ENT: Present mucous membranes moist *Routine Neck Exam Neck: Present supple; Absent lymphadenopathy *Routine Respiratory Exam Respiratory: Present CTA bilaterally *Routine Cardiovascular Exam Cardiovascular: Present RRR *Routine Abdominal Exam Abdominal: Present soft and normoactive bowel sounds; Absent tenderness *Routine Rectal Exam Patient deferred: visual exam Comments: Left buttock packing in place without drainage. *Routine Exam Patient deferred: external exam *Routine Extremities Exam Extremities: Absent cyanosis, clubbing or edema *Routine Skin Exam Skin: Present warm; Absent rash *Routine Neurological Exam Neurological: Present alert, oriented X3 and moving all extremities; Absent altered mental status Results Data Completed and Pending Labs on day of discharge: Labs from last 24 hours 08/11/24 08/11/24 08/10/24 06:53 06:14 21:27 WBC 12.4 H RBC 4.30 Hgb 14.4 Hct 43.9 MCV 101.9 H MCH 33.4 H MCHC 32.8 RDW 12.9 Plt Count 222 MPV 8.8 Neut % (Auto) 66.9 Lymph % (Auto) 22.6 [place] % (Auto) 8.8 Eos % (Auto) 0.7 Baso % (Auto) 1.1 Neut # (Auto) 8.3 H Lymph # (Auto) 2.8 [place] # (Auto) 1.1 H Eos # (Auto) 0.1 Baso # (Auto) 0.1 Sodium 134 L Potassium 3.8 Chloride 103 Carbon Dioxide 26 Anion Gap 8.8 BUN 11 Creatinine 0.50 L Estimated Creat Clear 178 Estimated GFR 126 Est GFR ( Amer) 153 Glucose 323 H POC Glucose 277 H 284 H Calcium 8.4 Vancomycin Peak 08/10/24 08/10/24 08/10/24 16:50 11:02 09:02 WBC RBC Hgb Hct MCV MCH MCHC RDW Plt Count MPV Neut % (Auto) Lymph % (Auto) [place] % (Auto) Eos % (Auto) Baso % (Auto) Neut # (Auto) Lymph # (Auto) [place] # (Auto) Eos # (Auto) Baso # (Auto) Sodium Potassium Chloride Carbon Dioxide Anion Gap BUN Creatinine Estimated Creat Clear Estimated GFR Est GFR ( Amer) Glucose POC Glucose 262 H 267 H Calcium Vancomycin Peak 17.3 Preliminary micro results at discharge 08/08/24 17:50 Blood Culture - Preliminary Blood NO GROWTH AFTER 48 HOURS 08/08/24 17:40 Blood Culture - Preliminary Blood NO GROWTH AFTER 48 HOURS 08/09/24 Unknown Abscess Culture - Preliminary Buttock - Abscess NO GROWTH AFTER 24 HOURS 08/08/24 09:53 Blood Culture - Preliminary Blood NO GROWTH AFTER 48 HOURS 08/08/24 09:35 Blood Culture - Preliminary Blood NO GROWTH AFTER 48 HOURS 08/08/24 21:30 Wound Culture - Preliminary Buttock DS: Diagnosis Discharge Diagnosis (1) Left buttock abscess: Status: Acute Code(s): L02.31 - Cutaneous abscess of buttock (2) Cellulitis of buttock, left: Status: Acute Code(s): L03.317 - Cellulitis of buttock Meds Home Medications and Allergies Home Medications ?Medication ?Instructions ?Recorded ?Confirmed ?Type meloxicam 15 mg tablet 15 mg PO DAILY 08/08/24 08/08/24 History rosuvastatin 10 mg tablet 30 mg PO HS 08/08/24 08/09/24 History clindamycin HCl 150 mg capsule 450 mg (3 x 150 mg) PO TID 5 days 08/11/24 Rx #45 caps insulin glargine 100 unit/mL (3 30 unit (0.3 mL) SQ HS 30 days #9 08/11/24 Rx mL) subcutaneous pen (Lantus mL Solostar U-100 Insulin) pen needle, diabetic 31 gauge x #100 ea 08/11/24 Rx 1/4 New Prescriptions to Start Prescriptions: clindamycin HCl Timur Frances insulin glargine [Lantus Solostar U-100 Insulin] Timur Frances pen needle, diabetic Timur Frances Allergies Allergy/AdvReac Type Severity Reaction Status Date / Time Penicillins Allergy Severe Swelling Verified 04/06/24 15:20 of Lip/Tongue/Throat Sulfa (Sulfonamide Allergy Severe shortness Verified 04/06/24 15:20 Antibiotics) of breath ketorolac [From Toradol] Allergy Mild Other Verified 08/08/24 09:59 codeine Allergy shortness Verified 04/06/24 15:20 of breath iodine Allergy Other Verified 08/08/24 09:59 metformin Allergy heart Verified 04/06/24 15:20 issues Tetracyclines Allergy Weakness Verified 04/06/24 15:20 Discharge Plan Disposition Patient Disposition: Home, Self-Care Condition: Fair Discharge Order Discharge Orders: Discharge Order (Routine); Ordered 08/11/24 Ordered By: Timur Frances Follow up Plan Follow up with: Francisco Vazquez MD [Primary Care Provider] - 08/18/24 11:00 am Dre Hi MD [Staff Physician] - 08/26/24 2:00 pm Prescriptions/Medication Reconciliation: New clindamycin HCl 150 mg Capsule 450 mg PO TID 5 Days Qty: 45 0RF insulin glargine [Lantus Solostar U-100 Insulin] 100 unit/mL (3 mL) Insulin Pen 30 unit SQ HS 30 Days Qty: 9 0RF (DME) pen needle, diabetic 31 gauge x 1/4 needle See Rx Instructions .ROUTE .MEDSUPPLY Qty: 100 0RF Rx Instructions: As directed Continued meloxicam 15 mg tablet 15 mg PO DAILY rosuvastatin 10 mg tablet 30 mg PO HS Discontinued cephalexin 500 mg capsule 500 mg PO BID Problem Reconciliation Problems Reviewed?: Yes Patient Discharge Instructions ACTIVITY: Continue current activity DIET: continue same diet and diabetic diet Patient Instructions: DI for Cellulitis -- Adult, Low Glycemic Index Diets (Alternative Therapy), Low-Carbohydrate Diet (Alternative Therapy), Carbohydrate-Counting Diet, DI for Hypokalemia, DI for Surgical Site Infection, DI for Sepsis -- Adult, DI for Incision and Drainage Print Language: Kiswahili Providers Primary Care Provider: Francisco Vazquez Admit Provider: Bacilio Davis Attending Provider: Bacilio Davis
[2024-08-11 08:00] VITALS: BP 139/83; PULSE 70; PULSE 75; RESP 18; TEMP 36.5; O2SAT 94
[2024-08-11] MEDS: ENOXAPARIN 40MG/0.4ML SYRINGE 40 MG SQ (08:17)
[2024-08-11] MEDS: CEFEPIME HCL 1 GM in 0.9 % SODIUM CHLORIDE 50 ML IV (08:17)
[2024-08-11] MEDS: NICOTINE 21MG/24HR PATCH 21 MG TD (08:18)
[2024-08-11] MEDS: INSULIN GLARGINE 100 UNITS/ML 3ML FLEXPEN 10 UNIT SQ (08:19)
--- NOTE | 2024-08-11 09:23 | P.PN_ITS ---
Subjective *Date: 08/11/24 *Time: : Medical Exam Vital signs and Labs for Last 24 Hours: Vital Signs Temp Pulse Pulse Resp BP Pulse Ox O2 Del Method 08/11/24 07:00 Room Air 08/11/24 05:00 Room Air 08/11/24 04:00 60 08/11/24 04:00 98.3 F 68 18 132/85 96 Room Air 08/11/24 03:00 Room Air 08/11/24 01:00 Room Air 08/11/24 00:00 60 08/11/24 00:00 98.0 F 63 14 125/71 95 Room Air 08/10/24 23:00 Room Air 08/10/24 21:00 Room Air 08/10/24 20:00 72 16 97 Room Air 08/10/24 20:00 99.1 F 72 16 124/66 97 Room Air 08/10/24 20:00 80 08/10/24 18:47 Room Air 08/10/24 17:00 Room Air 08/10/24 16:00 98.1 F 72 18 147/85 H 93 L Room Air 08/10/24 16:00 70 08/10/24 15:00 Room Air 08/10/24 12:50 Room Air 08/10/24 12:00 66 08/10/24 12:00 98.3 F 62 17 113/88 96 Room Air 08/10/24 11:00 Room Air Intake and Output 08/10/24 08/11/24 08/11/24 23:59 07:59 15:59 Intake Total 720 / 3223 523 / 523 Output Total 0 / 1 0 / 0 Balance 720 / 3222 523 / 523 Intake: Intake, Oral Amount 720 / 2550 150 / 150 Infusion Intake 373 / 373 Cefepime HCl 1 gm In 0.9 % 50 / 50 Sodium Chloride 50 ml @ 100 mls /hr IV Q12H PETAR Rx#:[id number] Lactated Ringers 1000ML 1,000 323 / 323 ml @ 50 mls/hr IV .Q20H PETAR Rx# :[id number] Output: Output, Urine Amount 0 / 1 0 / 0 Other: Number of Unmeasured Voids 1 1 Weight 92.941 kg Patient Weight 08/11/24 23:59 Weight 92.941 kg Laboratory Results - last 24 hr 08/10/24 09:02: Vancomycin Peak 17.3 08/10/24 11:02: POC Glucose 267 H 08/10/24 16:50: POC Glucose 262 H 08/10/24 21:27: POC Glucose 284 H 08/11/24 06:14: WBC 12.4 H, RBC 4.30, Hgb 14.4, Hct 43.9, MCV 101.9 H, MCH 33.4 H, MCHC 32.8, RDW 12.9, Plt Count 222, MPV 8.8, Neut % (Auto) 66.9, Lymph % (Auto) 22.6, [place] % (Auto) 8.8, Eos % (Auto) 0.7, Baso % (Auto) 1.1, Neut # (Auto) 8.3 H, Lymph # (Auto) 2.8, [place] # (Auto) 1.1 H, Eos # (Auto) 0.1, Baso # (Auto) 0.1, Sodium 134 L, Potassium 3.8, Chloride 103, Carbon Dioxide 26, Anion Gap 8.8, BUN 11, Creatinine 0.50 L, Estimated Creat Clear 178, Estimated GFR 126, Est GFR ( Amer) 153, Glucose 323 H, Calcium 8.4 08/11/24 06:53: POC Glucose 277 H I & O for Labs for Last 24 Hours: Intake & Output 08/08/24 08/09/24 08/10/24 08/11/24 23:59 23:59 23:59 23:59 Intake Total 1150 / 1150 2978 / 3638 2700 / 3223 523 / 523 Output Total 0 / 0 150 / 150 1 / 1 0 / 0 Balance 1150 / 1150 2828 / 3488 2699 / 3222 523 / 523 Weight 83.461 kg 88.36 kg 90.62 kg 92.941 kg Microbiology Reports for the Last 24 Hours: Microbiology 08/08/24 17:50 Blood Blood Culture - Preliminary NO GROWTH AFTER 48 HOURS 08/08/24 17:40 Blood Blood Culture - Preliminary NO GROWTH AFTER 48 HOURS 08/09/24 Unknown Buttock - Abscess Gram Stain - Final 08/09/24 Unknown Buttock - Abscess Abscess Culture - Preliminary NO GROWTH AFTER 24 HOURS 08/08/24 09:53 Blood Blood Culture - Preliminary NO GROWTH AFTER 48 HOURS 08/08/24 09:35 Blood Blood Culture - Preliminary NO GROWTH AFTER 48 HOURS 08/08/24 21:30 Buttock Gram Stain - Final 08/08/24 21:30 Buttock Wound Culture - Preliminary 08/08/24 09:13 Urine,Clean Catch Urine Culture - Final The patient's infection will respond to the chosen ABx?: Yes (URINE CX = CONTAMINATED, BLOOD CX = NG AT 48 HR X2, WOUND CX PENDING) Is the patient receiving the right drug, dose, and route?: Yes Could a more targeted ABx be ordered?: No
[2024-08-11 11:47] LABS: POC Glucose,Bedside 360 (70-110)
[2024-08-11 12:00] VITALS: BP 140/85; PULSE 74; RESP 18; TEMP 36.5; O2SAT 94
[2024-08-11] MEDS: CLINDAMYCIN 150MG CAPSULE 450 MG PO (12:40)
--- NOTE | 2024-08-12 10:51 | CARE MANAGER ---
Called and spoke with patient regarding recent discharge. She has started new medication prescribed at discharge and was aware of scheduled f/u appts. No concerns/questions voiced at time of call.
== END 2024-08-11 14:35 | disposition home or self-care (01) | DRG 872 ==
LOC: ER 12:00 → 2ND 18:52
PROVIDERS: Internal Medicine Adolescent Medicine; Surgery; Admitting Provider Student in an Organized Health Care Education/Training Program; Emergency Provider Emergency Medicine; PCP Family Medicine; Visit Provider Student in an Organized Health Care Education/Training Program
PROC: 0J990ZX Drainage of Buttock Subcutaneous Tissue and Fascia, Open Approach, Diagnostic (ICD-10-PCS; principal; 2024-08-09 13:00)
DX: A41.9 Sepsis, unspecified organism (principal); L02.31 Cutaneous abscess of buttock; L03.317 Cellulitis of buttock; E11.9 Type 2 diabetes mellitus without complications
CPT/HCPCS: 10060; 36415; 70450; 74176; 80048; 80053; 80202; 81001; 82009; 82803; 82962; 83036; 83605; 83735; 84100; 84145; 85007; 85025; 85027; 86803; 87040; 87070; 87075; 87077; 87086; 87186; 87205; 87389; 93005; 99291; J0131; J0692; J0696; J1100; J1650; J1885; J2250; J2405; J3010; J3370; J3475; J3480; J7120

== ENCOUNTER 2024-09-30 10:49 | Emergency (ER) | payer MEDICAID, SELFPAY ==
[2024-09-30 11:25] VITALS: BP 116/71; PULSE 89; RESP 19; TEMP 36.6; O2SAT 98; BMI 34.2
--- NOTE | 2024-09-30 11:44 | ED_ITS ---
Discharge Plan Disposition Patient Disposition: Home, Self-Care Condition: Good Prescriptions Prescriptions: New clindamycin HCl 300 mg capsule 300 mg PO Q6H 7 Days Qty: 28 0RF mupirocin 2 % ointment 1 applic topical TID Qty: 22 0RF Rx Instructions: apply to area as directed No Action (DME) pen needle, diabetic 31 gauge x 1/4 needle See Rx Instructions .ROUTE .MEDSUPPLY Qty: 100 0RF Rx Instructions: As directed meloxicam 15 mg tablet 15 mg PO DAILY insulin glargine [Lantus Solostar U-100 Insulin] 100 unit/mL (3 mL) insulin pen 30 unit SQ HS Patient Comments: 30 UNIT (0.3 ML) SUBCUTANEOUSLY AT BEDTIME NIGHTLY FOR 30 DAYS Jardiance 25 mg tablet 25 mg PO DAILY Referrals Follow up/Referrals: Francisco Vazquez MD [Primary Care Provider] - See instructions Activity Restrictions/Add. Instructions Additional Instructions/Restrictions: *Start antibiotic(s) immediately and be sure to take as ordered for the FULL length of time although you may be feeling better or start to see improvement in the next 24-48 hours *Monitor closely. Outlined redness so that you can monitor easier. Follow up immediately for new or worsening symptoms including but not limited to redness, swelling, streaking from site fever or chills. *Warm compress 15 minutes 3-4 times day *Never squeeze or pop these on your own. Seek immediate medical attention next time this occurs *Monitor Temp. Tylenol every 4 hours as needed and ibuprofen every 6 hours as needed (as long as your primary care doctor has told you that it is ok to take both. For fever, aches, pain. ER if no less that 101 despite Tylenol and ibuprofen ?Follow up with your family doctor/primary care physician in the next 48-72 hours if no improvement Clinical Impressions Clinical Impression: Cellulitis Instructions Patient Instructions: Cellulitis, Mupirocin, Clindamycin Print Language Print Language: Malay Discharge ED Provider: Kylah Yu [facility] [place] General Stated complaint: cyst in bend of leg Mode of Arrival: Ambulatory Source of Information: Patient Limitations: No Limitations Time Seen by Provider: 09/30/24 11:44 Description of Symptoms (Recalled from Triage Doc. by RN): PATIENT C/O CYST TO BEND OF LEFT LEG X 4 DAYS HEENT Symptoms (Recalled from RN notes): No Resp Symptoms (Recalled from RN notes): No Skin Symptoms (Recalled from RN notes): Yes MS Symptoms (Recalled from RN notes): No Functional Status (Recalled from RN notes): WNL History of Present Illness Provider Complaint: Patient states that not too long ago she had an abscess on her buttock area that she had to see the surgeon over States that she is a diabetic and she noticed an area on her right groin area in the bend of her right leg and she is been squeezing it and trying to get something out of it but hasnt been successful states that today it was still sore so she came in to get it checked Related Data Home Medications ?Medication ?Instructions ?Recorded ?Confirmed empagliflozin 25 mg tablet 25 mg PO DAILY 09/30/24 09/30/24 (Jardiance) insulin glargine 100 unit/mL (3 30 unit SQ HS 09/30/24 09/30/24 mL) subcutaneous pen (Lantus Solostar U-100 Insulin) meloxicam 15 mg tablet 15 mg PO DAILY 09/30/24 09/30/24 Previous Rx's ?Medication ?Instructions ?Recorded pen needle, diabetic 31 gauge x #100 ea 08/11/2411/07 clindamycin HCl 300 mg capsule 300 mg PO Q6H 7 days #28 caps 09/30/24 mupirocin 2 % topical ointment 1 applic topical TID #22 grams 09/30/24 Allergies Allergy/AdvReac Type Severity Reaction Status Date / Time Penicillins Allergy Severe Swelling Verified 08/26/24 14:06 of Lip/Tongue/Throat Sulfa (Sulfonamide Allergy Severe shortness Verified 08/26/24 14:06 Antibiotics) of breath ketorolac (From Toradol) Allergy Mild Other Verified 08/26/24 14:06 codeine Allergy shortness Verified 08/26/24 14:06 of breath iodine Allergy Other Verified 08/26/24 14:06 metformin Allergy heart Verified 08/26/24 14:06 issues Tetracyclines Allergy Weakness Verified 08/26/24 14:06 Worker's Comp Is this a Worker's Comp case?: No PFSH PFS Disclaimer: The information contained in this section may have been updated after the patient was seen, as this information can be updated by other users. Medical History Mild acid reflux Bladder incontinence Hypertension Seasonal allergies Chronic back pain Scoliosis Cervical spondylosis Surgical History H/O removal of cyst History of colonoscopy Family History Grandmother Cancer Father Stroke Brother Stroke Sister Cancer Social History Smoking Status: Current every day smoker alcohol intake: never substance use type: denies use current occupational status: unemployed current occupation: [employer] ROS Obtained: Yes All systems reviewed & no additional complaints except as documented and Yes Systems reviewed as appropriate & no additional complaints except as documented Constitutional Constitutional: Reports system reviewed and no additional complaints, except as documented, Reports as per HPI, Denies body ache, Denies chills, Denies fever(s) and Denies headache(s) ENT Ears, Nose, Mouth, and Throat: Reports system reviewed and no additional complaints, except as documented, Reports as per HPI and Denies headache(s) Cardiovascular Cardiovascular: Reports system reviewed and no additional complaints, except as documented and Reports as per HPI Respiratory Respiratory: Reports system reviewed and no additional complaints, except as documented and Reports as per HPI Gastrointestinal Gastrointestingal: Reports system reviewed and no additional complaints, except as documented and as per HPI Musculoskeletal Musculoskeletal: Reports system reviewed and no additional complaints, except as documented and Reports as per HPI Integumentary/Breasts Skin/Breast: Reports system reviewed and no additional complaints, except as documented, Reports as per HPI and Reports other (red tender area in right groin area) Neurologic Neurologic: Denies headache(s) Physical Exam General General appearance: alert and in no apparent distress ENT ENT exam: Present mucous membranes moist Expanded ENT Exam Nose exam: Absent sinus tenderness Throat exam: Present normal inspection Respiratory Respiratory exam: Present normal lung sounds bilaterally; Absent respiratory distress or wheezes Cardiovascular Cardiovascular exam: Present regular rate, normal rhythm and normal heart sounds Expanded Exam Female Image: 2 1. small hard area noted tender to the touch no drainage Neurological Exam Neurological exam: Present alert, oriented X3 and normal gait Medical Decision Making Medical Records Screening: Per USPSTF and CDC recommendations, given the prevalence of disease in our region, it is our hospital?s policy to screen for HIV and viral Hepatitis for all patients aged 18 and over and those with ongoing risk factors. Kumar Inquiry Pt receiving controlled substance: No Kumar was queried for this patient: No Vital Signs: 09/30/24 11:25 Temperature 97.8 F Temperature Source Oral Pulse Rate [Left Brachial] 89 Respiratory Rate 19 Blood Pressure [Left Arm] 116/71 Blood Pressure Mean [Left Arm] 86 Blood Pressure Source [Left Arm] Automatic Cuff Blood Pressure Position [Left Arm] Sitting 02 Sat by Pulse Oximetry 98
[2024-09-30 11:50] VITALS: BP 116/71; PULSE 89; RESP 19; TEMP 36.6; O2SAT 98
== END 2024-09-30 11:56 | disposition home or self-care (01) ==
PROVIDERS: Emergency Provider Nurse Practitioner; PCP Family Medicine
DX: L03.116 Cellulitis of left lower limb (principal)
CPT/HCPCS: 99213; G0381

== ENCOUNTER 2024-11-26 16:24 | Emergency (ER) | payer MEDICAID, SELFPAY ==
[2024-11-26 16:24] VITALS: BP 129/81; PULSE 73; RESP 18; TEMP 37; O2SAT 96; BMI 32.7
--- NOTE | 2024-11-26 16:35 | XR_ITS ---
PROCEDURE INFORMATION: Exam: XR Chest Exam date and time: 11/26/2024 5:09 PM Age: 59 years old Clinical indication: Cough; Additional info: Cough and congestion TECHNIQUE: Imaging protocol: Radiologic exam of the chest. Views: 2 views. COMPARISON: No relevant prior studies available. FINDINGS: Lungs: Left mid and lower lung ground-glass opacities. No consolidation. Pleural spaces: Normal. No pleural effusion. No pneumothorax. Heart/Mediastinum: Normal. No cardiomegaly. Vasculature: Tortuous atherosclerotic thoracic aorta. Bones/joints: Thoracolumbar levoscoliosis with mild multilevel degenerative disc disease. IMPRESSION: Left mid and lower lung ground-glass opacities. Findings are suspicious for pneumonia.
--- NOTE | 2024-11-26 16:35 | ED_ITS ---
Discharge Plan Disposition Patient Disposition: Home, Self-Care Condition: Fair Prescriptions Prescriptions: New mupirocin 2 % ointment 1 applic topical BID 5 Days Qty: 22 0RF cefdinir 300 mg capsule 300 mg PO BID 7 Days Qty: 14 0RF azithromycin 500 mg tablet 500 mg PO DAILY 2 Days Qty: 2 0RF Rx Instructions: start on day 2 of therapy nicotine 21 mg/24 hr patch 24 hour 1 patch transdermal DAILY Qty: 28 2RF No Action Jardiance 25 mg tablet 25 mg PO DAILY Qty: 30 3RF Januvia 100 mg tablet 100 mg PO DAILY Qty: 30 3RF clindamycin HCl 300 mg capsule 300 mg PO TID Qty: 30 0RF (DME) lancets Misc See Rx Instructions .Route Qty: 100 2RF Rx Instructions: As directed alcohol swabs [Alcohol Pads] Pads, Medicated 1 pad topical BID 30 Days Qty: 100 2RF (DME) pen needle, diabetic 31 gauge x 1/4 needle See Rx Instructions .ROUTE .MEDSUPPLY Qty: 100 0RF Rx Instructions: As directed meloxicam 15 mg tablet 15 mg PO DAILY Referrals Follow up/Referrals: Francisco Vazquez MD [Primary Care Provider] - See instructions Activity Restrictions/Add. Instructions Additional Instructions/Restrictions: Follow-up with your PCP in 48 hours for recheck. Return to ER for any worsening signs or symptoms as needed. Please take your antibiotics till it is completely gone. Continue clindamycin. Apply ointment to both nostrils twice daily for 5 days. Use chlorhexidine soap everywhere except around eyes daily for 5-7 days. Apply to sponge, apply soap and suds to entire body (including crevices and soles of feet), digital advertising specialist the shower for 3 to 5 minutes before rinsing. Have everybody in the house do the same. Wash clothes, sheets in hot water to kill bacteria as well. Clinical Impressions Clinical Impression: Pneumonia, Influenza A, Abscess Print Language Print Language: Persian Discharge ED Provider: Harvey Asher General Adult HPI <MARCELA Bravo - Last Filed: 11/26/24 22:21> General Chief complaint: Upper Respiratory Infection Stated complaint: Flu-like symptoms Time Seen by Provider: 11/26/24 16:34 History of Present Illness HPI narrative: Patient presents for evaluation of influenza. Patient and her exposed to influenza. She feels short of breath but denies chest pain fever chills he moptysis hematochezia melena nausea vomiting or diarrhea. Related Data Home Medications ?Medication ?Instructions ?Recorded ?Confirmed meloxicam 15 mg tablet 15 mg PO DAILY 09/30/24 11/26/24 Previous Rx's ?Medication ?Instructions ?Recorded pen needle, diabetic 31 gauge x #100 ea 08/11/2411/07 alcohol swabs (Alcohol Pads) 1 pad topical BID 30 days #100 ea 10/06/24 lancets #100 ea 10/06/24 clindamycin HCl 300 mg capsule 300 mg PO TID #30 caps 11/16/24 empagliflozin 25 mg tablet 25 mg PO DAILY Diabetes #30 tabs 11/16/24 (Jardiance) sitagliptin phosphate 100 mg 100 mg PO DAILY Diabetes #30 tabs 11/16/24 tablet (Januvia) azithromycin 500 mg tablet 500 mg PO DAILY 2 days #2 tabs 11/26/24 cefdinir 300 mg capsule 300 mg PO BID 7 days #14 caps 11/26/24 mupirocin 2 % topical ointment 1 applic topical BID 5 days #22 11/26/24 grams nicotine 21 mg/24 hr daily 1 patch transdermal DAILY #28 ea 11/26/24 transdermal patch Allergies Allergy/AdvReac Type Severity Reaction Status Date / Time Penicillins Allergy Severe Swelling Verified 11/26/24 14:47 of Lip/Tongue/Throat Sulfa (Sulfonamide Allergy Severe shortness Verified 11/26/24 14:47 Antibiotics) of breath ketorolac (From Toradol) Allergy Mild Other Verified 11/26/24 14:47 codeine Allergy shortness Verified 11/26/24 14:47 of breath iodine Allergy Other Verified 11/26/24 14:47 metformin Allergy heart Verified 11/26/24 14:47 issues Tetracyclines Allergy Weakness Verified 11/26/24 14:47 [facility] <MARCELA Bravo - Last Filed: 11/26/24 22:21> [facility] Disclaimer: The information contained in this section may have been updated after the patient was seen, as this information can be updated by other users. 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 Have you lived/traveled outside [place] in past 30 days?: No Contact w/someone who lives/traveled outside [place] past 30 days?: No Exposure to someone with infectious disease in past 14 days?: No Do you have a fever (greater than 100.4 F or 38 C)?: No Have you tested positive for COVID-19: No Exposed to someone with COVID-19 in past 14 days?: No Do you have a sore throat?: No Do you have a cough?: Yes Do you have any weakness?: No Do you have any diarrhea?: No Are you experiencing any unusual bleeding?: No Do you have any muscle aches/pain?: No Do you have any abdominal pain?: No Are you experiencing loss of taste or smell?: No Other Medical History Have you received the Flu Vaccine for this season: No Have you received the Pneumonia Vaccine: No <MARCELA Bravo - Last Filed: 11/26/24 22:21> ROS Obtained: Yes Systems reviewed as appropriate & no additional complaints except as documented Physical Exam <MARCELA Bravo - Last Filed: 11/26/24 22:21> General General appearance: alert and in no apparent distress Respiratory Respiratory exam: Present normal lung sounds bilaterally Cardiovascular Cardiovascular exam: Present regular rate Neurological Exam Neurological exam: Present alert and oriented X3 Medical Decision Making <MARCELA Bravo - Last Filed: 11/26/24 22:21> Medical Records Medical records reviewed: Yes I reviewed the patient's medical records. Screening: Per USPSTF and CDC recommendations, given the prevalence of disease in our region, it is our hospital?s policy to screen for HIV and viral Hepatitis for all patients aged 18 and over and those with ongoing risk factors. Kumar Inquiry Pt receiving controlled substance: No Vital Signs: 11/26/24 16:24 11/26/24 18:23 Temperature 98.6 F 0 F L Temperature Source Oral Pulse Rate 0 L Pulse Rate [Left] 73 Respiratory Rate 18 0 L Blood Pressure 0/0 L Blood Pressure [Right Arm] 129/81 Blood Pressure Mean [Right Arm] 97 Blood Pressure Source [Right Arm] Automatic Cuff Blood Pressure Position [Right Arm] Sitting 02 Sat by Pulse Oximetry 96 Oxygen Delivery Method Room Air Lab Data Lab results reviewed: Yes I reviewed the patient's lab results. Lab Results 11/26/24 16:25: SARS-CoV-2 (PCR) Not detected, Influenza A Untype (PCR) Detected A, Influenza Type B (PCR) Not detected Orders (Tests/Meds): ED MEDICATIONS Discontinued Medications Generic Name Dose Route Start Last Admin Trade Name Freq PRN Reason Stop Dose Admin Azithromycin 500 mg 11/26/24 17:58 11/26/24 18:06 Azithromycin 250mg Tablet PO 11/26/24 17:59 500 mg ONCE ONE Administration Cefdinir 300 mg 11/26/24 17:39 11/26/24 17:55 Cefdinir 300mg Capsule PO 11/26/24 17:40 300 mg ONCE ONE Administration Azithromycin 500 mg/ Sodium 250 mls @ 250 mls/hr 11/26/24 17:40 11/26/24 18:06 Chloride IV 11/26/24 17:41 Not Given ONCE ONE ORDERS Category Date Time Status Chest XR 2 view (NOT portable) [XR chest 2V] Stat Exams 11/26/24 16:35 Completed Rapid PCR Covid and Flu A/B Stat Lab 11/26/24 16:25 Completed Medical Decision Narrative: In summary patient is a 59-year-old female who presents to the emergency department for evaluation of flu exposure. Patient is hemodynamically upon arrival, afebrile. Physical exam is unremarkable nonfocal including normal breath sounds satting at 98% on room air breathing 18 times a minute with no increased work of breathing. Differential diagnosis includes simple influenza versus influenza pneumonia. Initial workup will be conducted with COVID and flu swabs and plain film chest x-ray. Initial interventions include Tylenol Motrin for now. Initial workup reviewed by me shows she is indeed flu positive however my informed interpretation of her plain film chest x-ray shows she has groundglass opacities consistent with possible atypical infection superimposed on influenza. Upon repeat evaluation patient remains hemodynamically stable afebrile satting at 98% on room air. Given this patient is appropriate for discharge with prescription for azithromycin and cefdinir and nicotine patches as their exposure to flu was more than 72 hours ago. Patient given strict return precautions and close follow-up with her PCP. <Harvey Asher MD - Last Filed: 11/26/24 23:11> Vital Signs: 11/26/24 16:24 11/26/24 18:23 Temperature 98.6 F 0 F L Temperature Source Oral Pulse Rate 0 L Pulse Rate [Left] 73 Respiratory Rate 18 0 L Blood Pressure 0/0 L Blood Pressure [Right Arm] 129/81 Blood Pressure Mean [Right Arm] 97 Blood Pressure Source [Right Arm] Automatic Cuff Blood Pressure Position [Right Arm] Sitting 02 Sat by Pulse Oximetry 96 Oxygen Delivery Method Room Air Lab Data Lab Results 11/26/24 16:25: SARS-CoV-2 (PCR) Not detected, Influenza A Untype (PCR) Detected A, Influenza Type B (PCR) Not detected Orders (Tests/Meds): ED MEDICATIONS Discontinued Medications Generic Name Dose Route Start Last Admin Trade Name Freq PRN Reason Stop Dose Admin Azithromycin 500 mg 11/26/24 17:58 11/26/24 18:06 Azithromycin 250mg Tablet PO 11/26/24 17:59 500 mg ONCE ONE Administration Cefdinir 300 mg 11/26/24 17:39 11/26/24 17:55 Cefdinir 300mg Capsule PO 11/26/24 17:40 300 mg ONCE ONE Administration Azithromycin 500 mg/ Sodium 250 mls @ 250 mls/hr 11/26/24 17:40 11/26/24 18:06 Chloride IV 11/26/24 17:41 Not Given ONCE ONE ORDERS Category Date Time Status Chest XR 2 view (NOT portable) [XR chest 2V] Stat Exams 11/26/24 16:35 Completed Rapid PCR Covid and Flu A/B Stat Lab 11/26/24 16:25 Completed Medical Decision Narrative: In summary patient is a 59-year-old female who presents to the emergency department for evaluation of flu exposure. Patient is hemodynamically upon arrival, afebrile. Physical exam is unremarkable nonfocal including normal breath sounds satting at 98% on room air breathing 18 times a minute with no increased work of breathing. Differential diagnosis includes simple influenza versus influenza pneumonia. Initial workup will be conducted with COVID and flu swabs and plain film chest x-ray. Initial interventions include Tylenol Motrin for now. Initial workup reviewed by me shows she is indeed flu positive however my informed interpretation of her plain film chest x-ray shows she has groundglass opacities consistent with possible atypical infection superimposed on influenza. Upon repeat evaluation patient remains hemodynamically stable afebrile satting at 98% on room air. Given this patient is appropriate for discharge with prescription for azithromycin and cefdinir and nicotine patches as their exposure to flu was more than 72 hours ago. Patient given strict return precautions and close follow-up with her PCP. I was consulted by the DAVID, and we discussed the complexity of the problems being addressed. I approved the treatment and management plan for this patient's care in the Emergency Department, thus performing a substantive portion of the medical decision making. I independently interviewed and examined patient. Also had smoking cessation conversation with her. She is agreeable and contemplative. Because patient at baseline without signs or symptoms of clinical decompensation, deemed appropriate for discharge. Results were relayed to patient who voiced understanding and were agreeable to outpatient management and follow up. I discussed my clinical impression with patient and answered all questions. At this time, the evidence for any other entities in the differential is insufficient to warrant any further testing or ED observation. This was explained as well. Advisory was given that persistent or worsening symptoms require further evaluation. I confirmed the understanding of this discussion. Harvey Asher MD Procedures <Harvey Asher MD - Last Filed: 11/26/24 23:11> Smoking Cessation Time Spent Discussing Smoking Cessation w/Patient (min): 10 Patient Acknowledges Need for Cessation: Yes Additional Comments: Agreeable to patches Critical Care <MARCELA Bravo - Last Filed: 11/26/24 22:21> Critical Care Time Critical Care Time: No
[2024-11-26 16:43] LABS: Coronavirus 19, PCR Not Detected (NotDetected); Influenza B, PCR Not Detected (NotDetected)
--- NOTE | 2024-11-26 17:17 | PC.NURSE ---
pt ambulated to her husbands room and states she is staying with him in his room.
--- NOTE | 2024-11-26 17:17 | PC.NURSE ---
PT GONE TO XRAY
[2024-11-26 17:32] LABS: Influenza A, PCR Detected (NotDetected)
[2024-11-26] MEDS: CEFDINIR 300MG CAPSULE 300 MG PO (17:55)
[2024-11-26] MEDS: AZITHROMYCIN 250MG TABLET 500 MG PO (18:06)
[2024-11-26 18:23] VITALS: BP 0/0; PULSE 0; RESP 0; TEMP -17.7; TEMP 0
--- NOTE | 2024-11-26 18:25 | PC.NURSE ---
d/c vitals were not obtained due to pt not being available in her room.
== END 2024-11-26 18:29 | disposition home or self-care (01) ==
PROVIDERS: Emergency Provider Emergency Medicine; PCP Family Medicine
DX: J10.1 Influenza due to other identified influenza virus with other respiratory manifestations (principal); J18.9 Pneumonia, unspecified organism; L02.91 Cutaneous abscess, unspecified; R06.02 Shortness of breath; F17.210 Nicotine dependence, cigarettes, uncomplicated; Z20.828 Contact with and (suspected) exposure to other viral communicable diseases; Z71.6 Tobacco abuse counseling
CPT/HCPCS: 71046; 87636; 99283; J0456; J7050

== ENCOUNTER 2025-08-22 11:53 | Emergency (ER) | payer MEDICAID, SELFPAY ==
[2025-08-22] VITALS (7 sets, daily range): BP systolic 104–133; BP diastolic 65–80; PULSE 64–85; RESP 17–18; TEMP 37.1; O2SAT 93–99; BMI 32.9
[2025-08-22 12:09] LABS: Coronavirus 19, PCR Not Detected (NotDetected); Influenza A, PCR Not Detected (NotDetected); Influenza B, PCR Not Detected (NotDetected)
--- NOTE | 2025-08-22 12:21 | ED_ITS ---
<Statement entered by Kaye Bailey MD - 08/23/25 14:49> I was consulted by the DAVID, and we discussed the complexity of the problems being addressed. I approved the treatment and management plan for this patient's care in the emergency department, thus performing a substantive portion of the medical decision making. Kaye Bailey MD, JESSICA, FACEP Discharge Plan Disposition Patient Disposition: Home, Self-Care Condition: Good Prescriptions Prescriptions: New doxycycline hyclate 100 mg capsule 100 mg PO BID 7 Days Qty: 14 0RF prednisone 20 mg tablet 40 mg PO DAILY 5 Days Qty: 10 0RF No Action nystatin 100,000 unit/gram ointment 1 applic topical BID Qty: 30 0RF mupirocin 2 % ointment 1 applic topical BID 5 Days Qty: 22 0RF naproxen 500 mg tablet PO PRN doxepin 25 mg capsule 25 mg PO HS Qty: 30 3RF (DME) lancets Misc See Rx Instructions .Route Qty: 100 2RF Rx Instructions: As directed alcohol swabs [Alcohol Pads] Pads, Medicated 1 pad topical BID 30 Days Qty: 100 2RF (DME) blood-glucose meter [Blood Glucose Monitoring] Kit See Rx Instructions .ROUTE .MEDSUPPLY Qty: 1 0RF Rx Instructions: As directed (DME) Blood Glucose Test Strip See Rx Instructions .ROUTE .MEDSUPPLY Qty: 100 2RF Rx Instructions: Pt is to test BID prn (DME) pen needle, diabetic [BD Ultra-Fine Mini Pen Needle] 31 gauge x 3/16 needle See Rx Instructions .ROUTE .MEDSUPPLY Qty: 100 2RF Rx Instructions: As directed rosuvastatin 10 mg tablet See Rx Instructions .ROUTE .COMPLEX Qty: 30 0RF Dose Instruction: TAKE 1 TABLET BY MOUTH ONCE DAILY Rx Instructions: TAKE 1 TABLET BY MOUTH ONCE DAILY loratadine [Claritin] 10 mg tablet 10 mg PO DAILY Qty: 90 0RF hydrochlorothiazide 25 mg tablet 25 mg PO DAILY Qty: 90 0RF Januvia 100 mg tablet See Rx Instructions .ROUTE .COMPLEX Qty: 30 2RF Dose Instruction: TAKE 1 TABLET BY MOUTH DAILY FOR DIABETES Rx Instructions: TAKE 1 TABLET BY MOUTH DAILY FOR DIABETES Jardiance 25 mg tablet See Rx Instructions .ROUTE .COMPLEX Qty: 30 2RF Dose Instruction: TAKE 1 TABLET BY MOUTH DAILY FOR DIABETES Rx Instructions: TAKE 1 TABLET BY MOUTH DAILY FOR DIABETES (DME) pen needle, diabetic 31 gauge x 1/4 needle See Rx Instructions .ROUTE .MEDSUPPLY Qty: 100 0RF Rx Instructions: As directed Referrals Follow up/Referrals: Francisco Vazquez MD [Primary Care Provider, Internal Medicine] - See instructions Deshaun Smart MD [Physician, Pulmonology] - See instructions Activity Restrictions/Add. Instructions Additional Instructions/Restrictions: Please return to the emergency department with any worsening signs or symptoms. Please take all your medications as prescribed. Please utilize all your at home medications as prescribed. Please follow-up with your PCP and furnace mechanic helper in the upcoming days/weeks. We will call you if there is any actionable results on your full radiology report of your chest x-ray. No news is good news. Clinical Impressions Clinical Impression: Pneumonia, COPD exacerbation Instructions Patient Instructions: DI for Chronic Obstructive Pulmonary Disease, DI for Pneumonia in Adults Print Language Print Language: Divehi Discharge ED Provider: Kaye Bailey General Adult HPI General Chief complaint: Upper Respiratory Infection Stated complaint: SOA, hist of COPD, Asthma Time Seen by Provider: 08/22/25 12:07 Mode of Arrival: Ambulatory Source of Information: Patient Description of Symptoms (Recalled from ER Triage Doc. by RN): Pt presents with c/o productive cough and nasal congestion. Pt states when she gets to coughing it makes it hard to breath. History of Present Illness HPI narrative: 60-year-old female presents to the emergency department accompanied by her family members for 3-week history of productive cough congestion and dyspnea, and chest pain that is waxed and waned, last episode was last night , patient endorses chest pain after her coughing fits , patient denies any fever, admits to subjective chills, denies any chest pain currently, denies any nausea vomiting abdominal pain constipation diarrhea no melena no hematochezia no hematemesis or hemoptysis, patient endorses trouble sleeping . Patient is a current everyday smoker, denies any alcohol or other drug use. Other past medical history is consistent with COPD, dated patient history of histoplasmosis, type 2 diabetes, hyperlipidemia, initial triage vitals are notable for SpO2 of 94% on room air, otherwise unremarkable. Please note that above description of symptoms, in this electronic medical record under categorization of recalled from ER triage doctor by RN are reflective of an initial nursing assessment, however, is not reflective of my full history and physical exam that was personally taken and clarified. Consequentially, this preceding description of symptoms, which may include the patient's categorized chief complaint in the EMR, do not reflect my personal clinical impression, and the ultimate description of history of present illness and patient stated complaints should be deferred to this section of the note. Unless stated otherwise or congruent with this section of the note, additional signs, symptoms, or incongruence should be interpreted as inaccurate with my clinical impression. Related Data Home Medications ?Medication ?Instructions ?Recorded ?Confirmed naproxen 500 mg tablet mg PO PRN 06/03/25 07/28/25 Previous Rx's ?Medication ?Instructions ?Recorded pen needle, diabetic 31 gauge x #100 ea 08/11/2411/07 alcohol swabs (Alcohol Pads) 1 pad topical BID 30 days #100 ea 10/06/24 lancets #100 ea 10/06/24 blood sugar diagnostic (Blood #100 ea 12/09/24 Glucose Test strips) blood-glucose meter (Blood Glucose #1 ea 12/09/24 Monitoring kit) pen needle, diabetic 31 gauge x #100 ea 12/09/24/16 (BD Ultra-Fine Mini Pen Needle) mupirocin 2 % topical ointment 1 applic topical BID 5 days #22 05/25/25 grams nystatin 100,000 unit/gram topical 1 applic topical BI D #30 grams 05/25/25 ointment rosuvastatin 10 mg tablet See Rx Instructions .Route 0 07/26/25 .COMPLEX #30 tabs doxepin 25 mg capsule 25 mg PO HS #30 caps 5 hydrochlorothiazide 25 mg tablet 25 mg PO DAILY #90 ta bs 08/03/25 loratadine 10 mg tablet (Claritin) 10 mg PO DAILY #90 tabs 08/03/25 empagliflozin 25 mg tablet See Rx Instructions .Route 08/11/25 (Jardiance) .COMPLEX #30 tabs sitagliptin phosphate 100 mg See Rx Instructions .Rout e 08/11/25 tablet (Januvia) .COMPLEX #30 tabs doxycycline hyclate 100 mg capsule 100 mg PO BID 7 day s #14 caps 08/22/25 prednisone 20 mg tablet 40 mg (2 x 20 mg) PO DAILY 5 days 08/22/25 #10 tabs Allergies Allergy/AdvReac Type Severity Reaction Status Date / Time Penicillins Allergy Severe Swelling Verified 07/28/25 11:19 of Lip/Tongue/Throat Sulfa (Sulfonamide Allergy Severe shortness Verified 07/28/25 11:19 Antibiotics) of breath ketorolac (From Toradol) Allergy Mild Other Verified 07/28/25 11:19 codeine Allergy shortness Verified 07/28/25 11:19 of breath iodine Allergy Other Verified 07/28/25 11:19 metformin Allergy heart Verified 07/28/25 11:19 issues Tetracyclines Allergy Weakness Verified 07/28/25 11:19 [facility] Disclaimer: The information contained in this section may have been updated after the patient was seen, as this information can be updated by other users. 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 Have you lived/traveled outside US in past 30 days?: No Contact w/someone who lives/traveled outside US past 30 days?: No Exposure to someone with infectious disease in past 14 days?: No Do you have a fever (greater than 100.4 F or 38 C)?: No Have you tested positive for COVID-19?: No Exposed to someone with COVID-19 in past 14 days?: No Do you have a sore throat?: No Do you have a cough?: No Do you have any weakness?: No Do you have any diarrhea?: No Are you experiencing any unusual bleeding?: No Do you have any muscle aches/pain?: No Do you have any abdominal pain?: No Are you experiencing loss of taste or smell?: No Other Medical History Have you received the Flu Vaccine for this season: No Have you received the Pneumonia Vaccine: No ROS Obtained: Yes All systems reviewed & no additional complaints except as documented Physical Exam General General appearance: alert and in no apparent distress Head Head exam: atraumatic and normocephalic Eye Eye exam: Present PERRL and EOMI ENT ENT exam: Present mucous membranes moist Neck Neck exam: Present normal inspection Chest Chest inspection: Present normal inspection and symmetric chest wall rise Respiratory Respiratory exam: Present wheezes and other (Mild diffuse wheezes throughout bilateral lung dsouza, ); Absent normal lung sounds bilaterally or respiratory distress Cardiovascular Cardiovascular exam: Present regular rate and normal rhythm Abdominal Exam Abdominal exam: Present soft; Absent tenderness, guarding, rebound or rigidity Extremities Exam Extremities exam: Present normal inspection Neurological Exam Neurological exam: Present alert and oriented X3 Psychiatric Psychiatric exam: Present normal affect Skin Skin exam: Present warm and dry Medical Decision Making Medical Records Medical records reviewed: Yes I reviewed the patient's medical records. Screening: Per USPSTF and CDC recommendations, given the prevalence of disease in our region, it is our hospital?s policy to screen for HIV and viral Hepatitis for all patients aged 18 and over and those with ongoing risk factors. Kumar Inquiry Pt receiving controlled substance: No Kumar was queried for this patient: No Vital Signs: 08/22/25 11:56 08/22/25 12:30 08/22/25 13:00 Temperature 98.7 F Temperature Source Temporal Artery Scan Pulse Rate 68 64 Pulse Rate [Right] 66 Respiratory Rate 18 Blood Pressure 104/77 L 116/80 Blood Pressure [Right Arm] 133/76 Blood Pressure Mean [Right Arm] 95 Blood Pressure Source [Right Arm] Automatic Cuff Blood Pressure Position [Right Arm] Sitting 02 Sat by Pulse Oximetry 95 95 95 Oxygen Delivery Method Room Air Room Air 08/22/25 13:30 08/22/25 14:29 08/22/25 14:30 Temperature Temperature Source Pulse Rate 70 85 77 Pulse Rate [Right] Respiratory Rate Blood Pressure 122/77 121/75 122/80 Blood Pressure [Right Arm] Blood Pressure Mean [Right Arm] Blood Pressure Source [Right Arm] Blood Pressure Position [Right Arm] 02 Sat by Pulse Oximetry 99 95 93 L Oxygen Delivery Method Lab Data Lab results reviewed: Yes I reviewed the patient's lab results. Lab Results 08/22/25 12:05: SARS-CoV-2 (PCR) Not detected, Influenza A Untype (PCR) Not detected, Influenza Type B (PCR) Not detected 08/22/25 12:54: WBC 9.5, RBC 5.42 H, Hgb 18.4 H, Hct 53.4 H, MCV 98.5, MCH 33.9 H, MCHC 34.5, RDW 12.6, Plt Count 198, MPV 9.4, Neut % (Auto) 46.6, Lymph % (Auto) 43.9, [place] % (Auto) 6.7, Eos % (Auto) 2.1, Baso % (Auto) 0.5, Neut # (Auto) 4.4, Lymph # (Auto) 4.2, [place] # (Auto) 0.6, Eos # (Auto) 0.2, Baso # (Auto) 0.1, D-Dimer 0.75 H, Sodium 138, Potassium 3.7, Chloride 102, Carbon Dioxide 30, Anion Gap 9.7, BUN 14, Creatinine 0.70, Estimated Creat Clear 110, Estimated GFR 85, Est GFR ( Amer) 103, Glucose 105 H, Calcium 9.0, Magnesium 2.0, Total Bilirubin 0.6, AST 29, ALT 22, Alkaline Phosphatase 87, Troponin I < 0.01, NT-Pro-B Natriuret Pep 40.9, Total Protein 7.2, Albumin 3.9, Globulin 3.3 H, Albumin/Globulin Ratio 1.2 08/22/25 12:54 08/22/25 12:54 Orders (Tests/Meds): ED MEDICATIONS Discontinued Medications Generic Name Dose Route Start Last Admin Trade Name Joonq PRN Reason Stop Dose Admin Albuterol/Ipratropium 6 ml 08/22/25 12:33 08/22/25 13:02 Ipratropium/Albuterol 3 Ml Neb IH 08/22/25 12:34 6 ml ONCE ONE Administration Methylprednisolone Sodium Succinate 125 mg 08/22/25 12:33 08/22/25 13:02 Methylprednisolone Sod Succ 125mg Vial IV 08/22/25 12:34 125 mg ONCE ONE Administration ORDERS Category Date Time Status XR chest portable Stat Exams 08/22/25 12:28 Taken Complete Blood Count Auto Diff Stat Lab 08/22/25 12:54 Completed Comprehensive Metabolic Panel Stat Lab 08/22/25 12:54 Completed D-Dimer Stat Lab 08/22/25 12:54 Completed Magnesium Stat Lab 08/22/25 12:54 Completed NT Pro Brain Natriuretic Pep. Stat Lab 08/22/25 12:54 Completed Rapid PCR Covid and Flu A/B Stat Lab 08/22/25 12:05 Completed Troponin I Q3H Lab 08/22/25 15:30 Ordered Troponin I Q3H Lab 08/22/25 18:30 Ordered Troponin I Stat Lab 08/22/25 12:54 Completed Medical Decision Narrative: 60-year-old female presents the emergency department, for 3 weeks of dyspnea productive cough congestion differential diagnosis to include but not limited to cardiac arrhythmia, electrolyte disturbance, COPD exacerbation, new onset/CHF exacerbation, pleural effusion, pneumonia, PE, acute bronchitis, viral URI among others. I discussed this patient's case with the attending physician Dr. Bailey Will obtain basic laboratory studies, D-dimer magnesium level proBNP, troponin, rapid PCR COVID and flu, EKG and chest x-ray, will give 6 mL DuoNeb, 125 mg IV methylprednisone for COPD exacerbation type symptomatology. COVID-19 and influenza are negative via PCR. CBC is notable for hemoconcentration with a RBC count of 5.42, and 5-3.4 COVID-19 is unremarkable via PCR, influenza negative via PCR CMP is unremarkable. Initial troponin is less than 0.01, proBNP is within normal limits D-dimer 0.75, utilizing age-adjusted D-dimer criteria, VTE is unlikely, utilizing years algorithm/criteria for PE is excluded. I reviewed the patient's chest x-ray along with the attending physician, there is patchy infiltrates, concerning for pneumonia, patient upon reexamination SpO2 is around 9495%, patient states her shortness of breath is improved after DuoNeb and IV steroids. I believe patient is cleared to be discharged home to self- care, discussed with patient and family that full radiology report of her chest x-ray is not yet available, patient and family voiced understanding would like to be discharged. I think this appropriate shared decision making was utilized we will call the patient with any actionable results from radiology report. Will treat the patient for community-acquired pneumonia/COPD exacerbation with doxycycline 100 mg p.o. twice daily for 7 days, and 40 mg p.o. prednisone for 5 days. Patient was given strict ED return precautions. Patient was given strict ED return precautions. Patient voiced understanding and agreement with current treatment plan/discharge plan. Follow-up PCP and furnace mechanic helper and other providers in the upcoming days/weeks. Critical Care Critical Care Time Critical Care Time: No
--- OUTSIDE RECORDS SUMMARY | 2025-08-22 12:23 | XMS_ITS | Encounter Summary ---
Author Organization [employer] ([place], [place], [place], [place]) Address [address] [place] [address] Care Team Providers Care Stave Grader Name Role Phone [facility], Provider Not In The System Primary Care Provider Unavailable Francisco Vazquez MD Primary Care Provider [phone]- [phone] Reason for Referral * Mammography (Routine) - Closed Specialty Diagnoses / Procedures Referred By Kaia beaver Referred To Contact Diagnoses Screening mammogram for breast cancer Procedures MM digital mammo screen with jag bilateral Mickey Grigsby MD [address] [place] [id number] Phone: tel: fax: Referral ID Status Reason Start Date Expiration Date Visits Re quested Visits Authorized [id number] Closed 07/24/2024 07/24/2025 1 1 Encounter Details Date Type Department Care Team (Late st Contact Info) Description 07/24/2024 Outside Orders [facility] Central Scheduling [address] [place] [address] Mickey Grigsby MD [address] [place] [id number] Screening mammogram for breast cancer (Primary Dx) Social History Tobacco Use Types Packs/Day Years Used Date Smoking Tobacco: Every Day Cigarettes Smokeless Tobacco: Never Alcohol Use Standard Drinks/Week Comments Not Currently 0 (1 standard drink = 0.6 oz pur e alcohol) Family and Community Support Answer Rustam e Recorded Help with Day to Day Activities Not on file 11/21/2023 Feeling Lonely or Isolated Not on file 11/21 Educational Attainment Answer Date Canelo rded Speak language other than Iranian at home Not on file 11/21/2023 Want help with school or training Not on file 11/21/2023 Substance Use Answer Date Recorded Used prescription meds for non-medical reasons N ot on file 11/21/2023 Used illegal drugs past 12 months Not on file 11/21/2023 Comments Unknown Sex and Gender Information Value Date Recorded Sex Assigned at Not on file Legal Sex Female 5:28 PM CDT Gender Identity Not on file Sexual Orientation Not on file documented as of this encounter Plan of Treatment Not on file documented as of this encounter Results * MM digital mammo screen with jag bilateral (10/08/2024 2:09 PM EST) Anatomical Region Laterality Modality Breast Bilateral Mammography 10/10/2024 11:0 1 AM EST Impressions 10/10/2024 11:05 AM EST FINAL IMPRESSION: ACR BI-RADS 2: Benign findings. RECOMMENDATIONS: Routine annual screening mammography. A letter including results and recommendations was sent to the patient. Density notification was provided to all patients. Patient information entered into a reminder system with a target due date for the next mammogram. At our facility, a port lions marker is positioned over a visible skin lesion and a linear marker is used to indicate a scar. A triangular marker is placed on a self reported palpable finding. Note: Mammography does not detect approximately 10-15% of breast cancers. An annual clinical breast exam by the patient's breast care physician and regular monthly self breast exams by the patient are integral parts of breast cancer screening, in addition to annual mammography. A normal mammogram does not completely exclude the presence of breast cancer, especially if there is an abnormal finding on physical exam. When clinically indicated, a biopsy should not be deferred because of a normal mammogram report. cc: Narrative 10/10/2024 11:05 AM EST PROCEDURE: Bilateral digital screening mammogram with tomosynthesis. REASON FOR EXAM: Routine screening. FAMILY HISTORY: There is no family history of breast cancer. COMPARISON STUDY: [facility] 2019 FINDINGS: Craniocaudal and mediolateral oblique images of both breasts were obtained in 2D, C-view, and 3D modes. The breast tissue has pattern b (scattered fibroglandular densities). No significant change. There is no evidence of dominant mass, architectural distortion, or suspicious calcifications. Round and dermal calcifications are noted. This examination was reviewed with the benefit of computer-aided detection (CAD). us Mickey Grigsby MD IMG MAMMOGRAPHY ORDERABLES Final Result documented in this encounter Visit Diagnoses Diagnosis Screening mammogram for breast cancer- Primary Screening mammogram for breast cancer documented in this encounter Care Teams Stave Grader Relationship Specialty Start Date End Date [facility], Provider Not In The System, [place] [address] PCP - General 08/10/23 10/07/24 Francisco Vazquez MD [address] [facility] [address] [place] [address] PCP - General Family Medicine 10/08/24 documented as of this encounter
--- OUTSIDE RECORDS SUMMARY | 2025-08-22 12:25 | XMS_ITS | Referral Summary ---
Author Organization [employer] ([place], [place], [place], [place]) Address [address] [place] [address] Care Team Providers Care Production Dispatcher Name Role Phone Francisco Vazquez MD Primary Care Provider [phone]- [phone] Allergies Active Allergy Reactions Criticality Noted Date Comments Codeine 08/10/2023 Iodinated Contrast Media 08/07/2024 Iodine 08/10/2023 Metformin 08/07/2024 Penicillin 08/10/2023 Sulfa (Sulfonamide Antibiotics) 05/2023 Tetracycline 08/10/2023 Ketorolac 08/10/2023 Medications No known medications Active Problems No known active problems Social History Tobacco Use Types Packs/Day Years Used Date Smoking Tobacco: Every Day Cigarettes Smokeless Tobacco: Never Tobacco Cessation:Ready to Q uit: Not Asked; Counseling Given: Not Answered Alcohol Use Standard Drinks/Week Comments Not Currently 0 (1 standard drink = 0.6 oz pur e alcohol) Family and Community Support Answer Rustam e Recorded Help with Day to Day Activities Not on file 11/21/2023 Feeling Lonely or Isolated Not on file 11/21 Educational Attainment Answer Date Canelo rded Speak language other than Mauritanian at home Not on file 11/21/2023 Want [...] on file Sexual Orientation Not on file Last Filed Vital Signs Vital Sign Reading Time Taken Comments Blood Pressure 138/78 03/12/2025 11:46 PM EDT Pulse 79 03/12/2025 11:46 PM EDT Temperature 36.6 C (97.9 F) 03/12/2025 9:32 PM EDT Respiratory Rate 18 03/12/2025 11:46 PM EDT Oxygen Saturation 94% 03/12/2025 11:46 PM EDT Inhaled Oxygen Concentration - - Weight 79.4 kg (175 lb) 03/12/2025 9:32 PM EDT Height 157.5 cm (5' 2 ) 03/12/2025 9:32 PM EDT Body Mass Index 32.01 03/12/2025 9:32 PM EDT Plan of Treatment Not on file Procedures Procedure Name Priority Date/Time Associated Diagnosis Comments MM DIGITAL MAMMO SCREEN WITH TREMAYNE BILATERAL Routine 10/08/2024 2:09 PM EST Screening mammogram for breast cancer from Last 3 Months or Most Recently Relevant to Health Maintenance Results * MM digital mammo screen with tremayne bilateral (10/08/2024 2:09 PM EST) Anatomical Region [...] the next mammogram. At our facility, a ambler marker is positioned over a visible skin [...] family history of breast cancer. [facility] FINDINGS: Craniocaudal and mediolateral oblique images of [...] Grigsby MD IMG MAMMOGRAPHY ORDERABLES Final Result from Last 3 Months or Most Recently Relevant to Health Maintenance Insurance [facility] MEDICAID [facility] [employer] Care Teams Production Dispatcher Relationship Specialty Start Date End Date Francisco Vazquez MD [address] [place] [address] [place] [address] PCP - General Family Medicine 10/08/24
--- NOTE | 2025-08-22 12:28 | XR_ITS ---
PROCEDURE INFORMATION: Exam: XR Chest Exam date and time: 08/22/2025 1:06 PM Age: 60 years old Clinical indication: Shortness of breath; Additional info: Dyspnea TECHNIQUE: Imaging protocol: Radiologic exam of the chest. Views: 1 view. COMPARISON: CR XR CHEST 2V 11/26/2024 5:09 PM FINDINGS: Limitations: Large amount of overlying soft tissue. Lungs: Patchy area of airspace opacity within the right lower lung appears similar partially corresponds to overlapping densities. No definitive airspace consolidation suspicious for a pneumonia. Mild central vascular fullness. Findings are unchanged. No CHF. Pleural spaces: No large pleural effusion. No pneumothorax. Heart/Mediastinum: Heart size is within normal limits. Vasculature: Atherosclerotic plaque at the aortic arch. Bones/joints: Moderate scoliosis. Multilevel degenerative changes are present throughout the spine. IMPRESSION: No acute findings within the chest. Heart size is within normal limits. Fullness of the central pulmonary vasculature is unchanged. No CHF. No large pleural effusion. No pneumothorax. No definitive infiltrate.
--- NOTE | 2025-08-22 12:40 | ECG_ITS ---
APPROVED REPORT Exam: Resting ECG HR:65 bpm ECG Measurements Heart Rate 65 AXES LA 179 P 67 QRSd 104 QRS 31 QT 429 T 65 QTc 441 Conclusion SINUS RHYTHM POSSIBLE LEFT ATRIAL ENLARGEMENT [-0.1mV P-WAVE IN V1/V2] POSSIBLE RIGHT VENTRICULAR CONDUCTION DELAY [RSR (QR) IN V1/V2] BORDERLINE ECG UNCONFIRMED REPORT Electronically signed by : MEL LENTZ, 08/24/2025 02:52:29
[2025-08-22] MEDS: IPRATROPIUM/ALBUTEROL 3 ML NEB 6 ML IH (13:02)
[2025-08-22] MEDS: METHYLPREDNISOLONE SOD SUCC 125MG VIAL 125 MG IV (13:02)
[2025-08-22 13:03] LABS: Hematocrit 53.4 % (37.0-47.0); Immature Granulocytes % 0.2 %; Mean Corpuscular HGB Conc 34.5 g/dL (31.8-35.4); Mean Corpuscular Hemoglobin 33.9 pg (27.0-31.2); Mean Corpuscular Volume 98.5 fl (81-99); Nucleated Red Blood Cells % 0 %; Platelet Count 198 K/mm3 (142-424); Red Blood Count 5.42 M/mm3 (4.20-5.40); Red Cell Distribution Width-SD 45.9 fL; White Blood Count 9.5 K/mm3 (4.8-10.8)
[2025-08-22 13:07] LABS: Hemoglobin 18.4 g/dL (12.2-16.2)
[2025-08-22 13:13] LABS: Chloride 102 mmol/L (98-107)
[2025-08-22 13:14] LABS: Albumin Level 3.9 g/dl (3.5-5.0); Potassium 3.7 mmoL/L (3.5-5.1); Sodium 138 mmol/L (136-145)
[2025-08-22 13:17] LABS: Alanine Aminotransferase 22 U/L (12-78); Albumin/Globulin Ratio 1.2 (1.1-1.8); Alkaline Phosphatase 87 U/L (38-126); Anion Gap 9.7 mEq/L (5-15); Aspartate Amino Transferase 29 U/L (14-36); Bilirubin,Total 0.6 mg/dl (0.2-1.3); Blood Urea Nitrogen 14 mg/dl (7-17); Calcium 9.0 mg/dl (8.4-10.2); Carbon Dioxide 30 mmol/L (22.0-30.0); Creatinine Clearance Estimated 110 mL/min (50-200); Creatinine,Serum 0.70 mg/dl (0.52-1.04); Estimated Glomerular Filt Rate 85 ml/min (>60); GFR (African American) 103 ML/MIN (>60); Globulin 3.3 g/dL (1.3-3.2); Glucose 105 mg/dl (74-100); Total Protein,Serum 7.2 g/dl (6.3-8.2)
[2025-08-22 13:18] LABS: Magnesium 2.0 mg/dl (1.6-2.3)
[2025-08-22 13:27] LABS: NT Pro Brain Natriuretic Pep. 40.9 pg/mL (0-125)
[2025-08-22 13:31] LABS: Troponin I < 0.01 ng/ml (0.00-0.034)
[2025-08-22 13:45] LABS: D-Dimer 0.75 ug/mL (0.0-0.5)
== END 2025-08-22 15:20 | disposition home or self-care (01) ==
PROVIDERS: Physician Assistant; Emergency Provider Student in an Organized Health Care Education/Training Program; PCP Family Medicine
DX: J44.1 Chronic obstructive pulmonary disease with (acute) exacerbation (principal); J44.0 Chronic obstructive pulmonary disease with (acute) lower respiratory infection; J18.9 Pneumonia, unspecified organism; F17.210 Nicotine dependence, cigarettes, uncomplicated
CPT/HCPCS: 71045; 80053; 83735; 83880; 84484; 85025; 85378; 87636; 93005; 96374; 99284; J2919